=== PATIENT | female | born 1960 | race Caucasian/White ===

== ENCOUNTER 2019-06-21 09:47 | Observation (INO) | payer MEDICARE ==
[2019-06-21 10:18] LABS: Appearance,Urine Cloudy (Clear); Bacteria,Urine Many /hpf; Bilirubin,Urine Negative (Negative); Blood,Urine Trace (Negative); Color,Urine Light Yellow; Glucose,Urine (UA) Negative (Negative); Ketones,Urine 1+ (Negative); Leukocyte Esterase,Urine Negative (Negative); Nitrite,Urine Negative (Negative); PH, Urine 5.5 (5.0-8.0); Protein,Urine Negative (Negative); RBC,Urine 1 /hpf (0-5); Specific Gravity,Urine 1.004 (1.001-1.035); Squamous Epithelial Cell,Urine 9 /hpf (0-4); Urobilinogen,Urine <2.0 mg/dL (<2.0)
[2019-06-21] MEDS ORDERED: KETOROLAC 30 MG/ML 1 ML VIAL IVP STA (10:26)
[2019-06-21] MEDS ORDERED: SODIUM CHLORIDE 0.9% 1,000 ML IV STA (10:26)
[2019-06-21] MEDS ORDERED: ONDANSETRON 4 MG/2 ML VIAL IVP STA (10:26)
--- NOTE | 2019-06-21 10:43 | ED ---
Female Urogenital HPI <Gutierrez Stephenson - Last Filed: 06/21/19 16:11> - General Source: patient Mode of arrival: ambulatory Limitations: no limitations <Viridiana Yoo - Last Filed: 06/21/19 17:07> - General Chief complaint: Urogenital Stated complaint: Female Time Seen by Provider: 06/21/19 09:55 - History of Present Illness Initial comments: Patient is a 59-year-old female presenting to the emergency Department with complaints of lower abdominal pain 4 days. Patient states she had a physical with her PCP on and was complaining of increasing frequency. Patient states they did a UA and there is no signs of infection, but they started her on Cipro just in case. Patient states her lower abdominal pain has been increasing over the last 4 days. She describes the pain as lots of pressure mixed with sharp pain, inability to urinate all the way. Patient admits to being on fentanyl for back pain for a number of years now. Patient also admits to some nausea. Patient denies fever, chills, diarrhea. Patient's last bowel movement was this morning and was normal. Patient has history of hysterectomy, foriegn body removal with lots of scar tissue. Patient states her pain medication is not touching this pain. (Viridiana Yoo) - Related Data Home Medications Medication Instructions Recorded Confirmed ALPRAZolam [Xanax] 1 mg PO HS PRN 06/21/19 06/21/19 Levothyroxine Sodium [Synthroid] 125 mcg PO DAILY 06/21/19 06/21/19 Polyethylene Glycol 3350 [Miralax] 17 gm PO HS 06/21/19 06/21/19 fentaNYL 25MCG/HR PATCH [Duragesic 1 patch TRANSDERM Q72H 06/21/19 06/21/19 25MCG/HR] Allergies Allergy/AdvReac Type Severity Reaction Status Date / Time Sulfa (Sulfonamide Allergy Rash/Hives Verified 06/21/19 10:17 Antibiotics) codeine AdvReac MIGRAINE Verified 06/21/19 10:17 Review of Systems ROS Other: All systems not noted in ROS Statement are negative. <Gutierrez Stephenson - Last Filed: 06/21/19 16:11> ROS Other: All systems not noted in ROS Statement are negative. <Viridiana Yoo - Last Filed: 06/21/19 17:07> ROS Statement: Those systems with pertinent positive or pertinent negative responses have been documented in the HPI. Past Medical History Past Medical History: Thyroid Disorder History of Any Multi-Drug Resistant Organisms: None Reported Past Surgical History: Back Surgery, Hysterectomy Past Psychological History: Anxiety Smoking Status: Never smoker Past Alcohol Use History: Occasional Past Drug Use History: None Reported <Viridiana Yoo - Last Filed: 06/21/19 17:07> General Exam Limitations: no limitations <Viridiana Yoo - Last Filed: 06/21/19 17:07> - General Exam Comments Initial Comments: GENERAL: Well-appearing, well-nourished and in no acute distress, appears to be uncomfortable. HEAD: Atraumatic, normocephalic. EYES: Pupils equal round and reactive to light, extraocular movements intact, sclera anicteric, conjunctiva are normal. ENT: TMs normal, nares patent, oropharynx clear without exudates. Moist mucous membranes. NECK: Normal range of motion, supple without lymphadenopathy or JVD. LUNGS: Breath sounds clear to auscultation bilaterally and equal. No wheezes rales or rhonchi. HEART: Regular rate and rhythm without murmurs, rubs or gallops. ABDOMEN: Very tender to palpation the entire lower abdominal region, suprapubic. Soft, normoactive bowel sounds. No guarding, no rebound. No masses appreciated. : Deferred EXTREMITIES: Normal range of motion, no pitting or edema. No clubbing or cyanosis. NEUROLOGICAL: Cranial nerves II through XII grossly intact. Normal speech, normal gait. PSYCH: Normal mood, normal affect. SKIN: Warm, Dry, normal turgor, no rashes or lesions noted. (Viridiana Yoo) Course Vital Signs 06/21/19 06/21/19 09:49 15:27 Temperature 97.5 F L Pulse Rate 94 78 Respiratory 18 19 Rate Blood Pressure 133/93 115/75 O2 Sat by Pulse 98 98 Oximetry Medical Decision Making - Lab Data Result diagrams: 06/21/19 10:48 06/21/19 10:48 <Gutierrez Stephenson - Last Filed: 06/21/19 16:11> - Lab Data Result diagrams: 06/21/19 10:48 06/21/19 10:48 <Viridiana Yoo - Last Filed: 06/21/19 17:07> - Medical Decision Making Patient reevaluated by myself, Dr. Stephenson. Patient updated on results. Case was discussed with Dr. Duke, who will admit For hospital call. Case also discussed with Kalie, practitioner working with Dr. Servin. They will consult. They do not recommend starting steroids at this time. Urine will need to be cultured. Patient states back pain is chronic and unchanged. No focal weakness on exam. No tenderness to the lumbar spine. Patient does have mild tenderness in the suprapubic region. (Gutierrez Stephenson) Patient is a 59-year-old female with complaints of lower abdominal pain 4 days. Patient has been taking Cipro for possible UTI. Upon arrival, vital signs are stable, afebrile. On exam patient has severe tenderness of the lower abdominal region, suprapubic. Bladder scan was performed and revealed over 600 mL of f luid. Straight cath was performed and patient had instant relief. Patient's CBC, CMP are within normal limits. UA shows 1+ ketones and a trace of blood. CT the abdomen shows postsurgical changes and lumbar spine. No other acute findings. Case is discussed with Dr. Stephenson. Patient will be admitted observation with orthopedic consult. Urine will be cultured. Patient is in agreement with this plan. (Viridiana Yoo) - Lab Data Lab Results 06/21/19 06/21/19 06/21/19 Range/Units 10:00 10:48 10:48 WBC 10.0 (3.8-10.6) k/uL RBC 4.76 (3.80-5.40) m/uL Hgb 14.2 (11.4-16.0) gm/dL Hct 42.7 (34.0-46.0) % MCV 89.7 (80.0-100.0) fL MCH 29.9 (25.0-35.0) pg MCHC 33.3 (31.0-37.0) g/dL RDW 14.9 (11.5-15.5) % Plt Count 243 (150-450) k/uL Neutrophils % 79 % Lymphocytes % 14 % Monocytes % 5 % Eosinophils % 1 % Basophils % 0 % Neutrophils # 7.9 H (1.3-7.7) k/uL Lymphocytes # 1.4 (1.0-4.8) k/uL Monocytes # 0.5 (0-1.0) k/uL Eosinophils # 0.1 (0-0.7) k/uL Basophils # 0.0 (0-0.2) k/uL Sodium 139 (137-145) mmol/L Potassium 4.6 (3.5-5.1) mmol/L Chloride 102 (98-107) mmol/L Carbon Dioxide 27 (22-30) mmol/L Anion Gap 10 mmol/L BUN 12 (7-17) mg/dL Creatinine 0.74 (0.52-1.04) mg/dL Est GFR (CKD-EPI)AfAm >90 (>60 ml/min/1.73 sqM) Est GFR (CKD-EPI)NonAf >90 (>60 ml/min/1.73 sqM) Glucose 105 H (74-99) mg/dL Calcium 9.0 (8.4-10.2) mg/dL Total Bilirubin 0.5 (0.2-1.3) mg/dL AST 31 (14-36) U/L ALT 25 (9-52) U/L Alkaline Phosphatase 62 (38-126) U/L Total Protein 6.8 (6.3-8.2) g/dL Albumin 3.8 (3.5-5.0) g/dL Urine Color Light Yellow Urine Appearance Cloudy H (Clear) Urine pH 5.5 (5.0-8.0) Ur Specific [place] 1.004 (1.001-1.035) Urine Protein Negative (Negative) Urine Glucose (UA) Negative (Negative) Urine Ketones 1+ H (Negative) Urine Blood Trace H (Negative) Urine Nitrite Negative (Negative) Urine Bilirubin Negative (Negative) Urine Urobilinogen <2.0 (<2.0) mg/dL Ur Leukocyte Esterase Negative (Negative) Urine RBC 1 (0-5) /hpf Urine WBC 3 (0-5) /hpf Ur Squamous Epith Cells 9 H (0-4) /hpf Urine Bacteria Many H (None) /hpf Disposition <Gutierrez Stephenson - Last Filed: 06/21/19 16:11> Is patient prescribed a controlled substance at d/c from ED?: No Decision Date: 06/21/19 Decision Time: 16:18 <Viridiana Yoo - Last Filed: 06/21/19 17:07> Clinical Impression: Urinary retention, Urinary tract infection Disposition: ADMITTED IP TO THIS HOSP Condition: Stable
[2019-06-21 11:15] LABS: Basophils % (A) 0 %; Eosinophils # (A) 0.1 k/uL (0-0.7); Eosinophils % (A) 1 %; HCT 42.7 % (34.0-46.0); HGB 14.2 gm/dL (11.4-16.0); Lymphocytes # (A) 1.4 k/uL (1.0-4.8); Lymphocytes % (A) 14 %; MCH 29.9 pg (25.0-35.0); MCHC 33.3 g/dL (31.0-37.0); MCV 89.7 fL (80.0-100.0); Mean Platelet Volume 7.6; Monocytes # (A) 0.5 k/uL (0-1.0); Monocytes % (A) 5 %; Neutrophils # (A) 7.9 k/uL (1.3-7.7); Neutrophils % (A) 79 %; Platelet Count 243 k/uL (150-450); RBC 4.76 m/uL (3.80-5.40); RDW 14.9 % (11.5-15.5)
[2019-06-21 11:17] LABS: ALT 25 U/L (9-52); AST 31 U/L (14-36); African American GFR (CKD) >90 (>60 ml/min/1.73 sqM); Albumin 3.8 g/dL (3.5-5.0); Alkaline Phosphatase 62 U/L (38-126); Anion Gap 10 mmol/L; Blood Urea Nitrogen 12 mg/dL (7-17); Carbon Dioxide 27 mmol/L (22-30); Chloride 102 mmol/L (98-107); Glucose 105 mg/dL (74-99); Potassium 4.6 mmol/L (3.5-5.1); Sodium 139 mmol/L (137-145); Total Bilirubin 0.5 mg/dL (0.2-1.3); Total Protein 6.8 g/dL (6.3-8.2)
--- NOTE | 2019-06-21 11:41 | XR ---
EXAMINATION TYPE: XR KUB DATE OF EXAM: 06/21/2019 COMPARISON: NONE HISTORY: Pain TECHNIQUE: Single supine KUB image of the abdomen is obtained FINDINGS: Small bowel demonstrates no evidence for dilatation or air fluid levels. Gas and fecal material is seen in non-distended colon. No convincing evidence for pneumoperitoneum. No unusual calcifications. The lung bases are clear. Postoperative changes lumbar spine. IMPRESSION: 1. Overall nonobstructive bowel gas pattern.
--- NOTE | 2019-06-21 13:44 | CT ---
EXAMINATION TYPE: CT abdomen pelvis w con DATE OF EXAM: 06/21/2019 COMPARISON: Difficulty with urinating HISTORY: Patient complains of difficulty urinating. CT DLP: 832.6 mGycm Automated exposure control for dose reduction was used. CONTRAST: CT scan of the abdomen pelvis is performed with IV Contrast, patient injected with 100 mL of Isovue 3 00. FINDINGS- LUNG BASES- No significant abnormality is appreciated. LIVER/GB-postcholecystectomy changes noted. Intrahepatic biliary ductal dilation likely is related to postcholecystectomy changes. There are multiple hypodensities within the liver the largest seen with in the left lobe on axial image 35 measuring 12 Hounsfield units suggestive of simple cyst. PANCREAS- No gross abnormality is seen. SPLEEN- No gross abnormality is seen. ADRENALS- No gross abnormality is seen. KIDNEYS/BLADDER- no hydronephrosis nephrolithiasis or renal mass. BOWEL- no bowel dilatation. Normal appendix. LYMPH NODES- No greater than 1cm abdominal or pelvic lymph nodes areappreciated. OSSEOUS STRUCTURES-postsurgical change suggestive L4-L5 laminectomy identified. Alignment anatomic. N o compression deformities. Abnormal soft tissue posterior to L4 and L5 likely related to post laminec bess scars. Disc bulging L3-L4 with facet arthropathy and ligamentum flavum likely results in canal s tenosis.. OTHER- aorta of normal caliber. Mild atherosclerotic changes. No free fluid. No free air. IMPRESSION- 1. Postcholecystectomy changes with findings suggestive of mild intrahepatic biliary ductal dilation. 2. Postsurgical change lower lumbar spine. Disc bulging and hypertrophic changes L3-L4 likely results in canal stenosis correlate with MRI as clinically warranted.
[2019-06-21] MEDS ORDERED: ONDANSETRON 4 MG/2 ML VIAL IVP PRN (16:15)
[2019-06-21] MEDS ORDERED: NALOXONE 0.4 MG/ML 1 ML VIAL IV PRN (16:15)
[2019-06-21] MEDS ORDERED: SODIUM CHLORIDE 0.9% 1,000 ML IV SCH (16:15)
[2019-06-21] MEDS ORDERED: ACETAMINOPHEN TAB 325 MG TAB PO PRN (16:15)
[2019-06-21 17:55] VITALS: BMI 29.6
[2019-06-21] MEDS ORDERED: ALPRAZolam 1 MG TAB PO PRN (18:51)
[2019-06-21] MEDS ORDERED: HYDROmorphone 1 MG/ML 1 ML SYRINGE IVP PRN (19:27)
--- NOTE | 2019-06-21 19:29 | P.HPIM ---
History of Present Illness H&P Date: 06/21/19 Chief Complaint: Urinary retention 51-year-old female with PMH of chronic lower back pain post laminectomy in 2012 presents to the ED for abdominal pain and urinary retention. Patient noted lower abdominal pain that was pressure-like in nature that started on Friday. Patient reports that the pain gets worse with movement, sitting up and with movement of her abdomen. Patient also reports difficulty urinating, difficulty in initiating a stream and dribbling of urine. Patient reports the pain to be 5 out of 10 in severity. Patient went to go see her PCP and a urinalysis was performed, negative for UTI. When her pain persisted, this prompted the patient to come to the ED. Patient denies any headache, lower melany edema, nausea or vomiting, fever or chills, cough, chest pain, shortness of breath, changes in bowel habits. No changes in appetite or weight. Patient denies any dizziness, numbness/weakness/tingling of the extremities. Patient denies any bladder or bowel incontinence. She denies any saddle anesthesia. Patient denies any lower extremity weakness, numbness/weakness/tingling of the lower extremities. In the ED, vital signs were stable. CBC and CMP was unremarkable. UA was negative for leukocyte esterase or nitrites. CT abdomen and pelvis shows post cholecystectomy changes, postsurgical lower lumbar spine, disc bulging of L3-L4 and likely results in canal stenosis. Patient is admitted for orthopedic evaluation. Review of Systems Pertinent positives and negatives as discussed in HPI, a complete review of systems was performed and all other systems are negative. Past Medical History Past Medical History: Thyroid Disorder History of Any Multi-Drug Resistant Organisms: None Reported Past Surgical History: Back Surgery, Hysterectomy Past Psychological History: Anxiety Smoking Status: Never smoker Past Alcohol Use History: Occasional Past Drug Use History: None Reported - Past Family History Mother Family Medical History: Cancer, COPD Father Family Medical History: Cancer Medications and Allergies Home Medications Medication Instructions Recorded Confirmed Type ALPRAZolam [Xanax] 1 mg PO HS PRN 06/21/19 06/21/19 History Ciprofloxacin HCl [Cipro] 250 mg PO BID 06/21/19 06/21/19 History Levothyroxine Sodium [Synthroid] 125 mcg PO DAILY 06/21/19 06/21/19 History Polyethylene Glycol 3350 [Miralax] 17 gm PO HS 06/21/19 06/21/19 History fentaNYL 25MCG/HR PATCH [Duragesic 1 patch TRANSDERM Q72H 06/21/19 06/21/19 History 25MCG/HR] Allergies Allergy/AdvReac Type Severity Reaction Status Date / Time Sulfa (Sulfonamide Allergy Rash/Hives Verified 06/21/19 17:24 Antibiotics) codeine AdvReac MIGRAINE Verified 06/21/19 17:24 Physical Exam Vitals: Vital Signs Temp Pulse Pulse Resp BP BP Pulse Ox 06/21/19 17:29 98 F 68 18 130/80 95 06/21/19 15:27 78 19 115/75 98 06/21/19 09:49 97.5 F L 94 18 133/93 98 Intake and Output 06/21/19 06/21/19 06/21/19 06:59 14:59 22:59 Output Total 600 450 Balance -600 -450 Output: Urine 600 450 Straight 600 450 Other: Voiding Method Indwelling Catheter Weight 74.843 kg 75.8 kg General: [non toxic], [no distress], [appears at stated age] Derm: [warm], [dry] Head: [atraumatic], [normocephalic], [symmetric] Eyes: [EOMI], [no lid lag], [anicteric sclera] Mouth: [no lip lesion], [mucus membranes moist] Cardiovascular: [S1S2 reg], [no murmur], [positive DP pulse bilateral], Lungs: [CTA bilateral], [no rhonchi, no rales] , [no accessory muscle use] Abdominal: [soft], [tenderness to palpation in the left lower quadrant without rebound], [no guarding], [no appreciable organomegaly] Ext: [no gross muscle atrophy], [no edema], [no contractures] Neuro: [ CN II-XI grossly intact], [no focal neuro deficits] Psych: [Alert], [oriented], [appropriate affect] Results CBC & Chem 7: 06/21/19 10:48 06/21/19 10:48 Labs: Abnormal Lab Results - Last 24 Hours (Table) 06/21/19 06/21/19 06/21/19 Range/Units 10:00 10:48 10:48 Neutrophils # 7.9 H (1.3-7.7) k/uL Glucose 105 H (74-99) mg/dL Urine Appearance Cloudy H (Clear) Urine Ketones 1+ H (Negative) Urine Blood Trace H (Negative) Ur Squamous Epith Cells 9 H (0-4) /hpf Urine Bacteria Many H (None) /hpf Thrombosis Risk Factor Assmnt - Choose All That Apply Any of the Below Risk Factors Present?: Yes Each Factor Represents 1 point: Age 41-60 years, Hx of IBD, Obesity (BMI >25) Other Risk Factors: No Other congenital or acquired thrombophilia - If yes, enter type in comment: No Thrombosis Risk Factor Assessment Total Risk Factor Score: 3 Thrombosis Risk Factor Assessment Level: Moderate Risk Assessment and Plan Assessment: Assessment and Plan Urinary retention, concerns for cord compression Chronic lower back pain post laminectomy in 2013 Hypothyroidism Per ED, 600 mL with Carson catheter. CT abdomen and pelvis showed no hydronephrosis or nephrolithiasis. CT pelvis shows disc bulging and L3-L4 resulting in canal stenosis. Plans: Continue Carson catheter. Plans to remove tomorrow. Follow orthopedic consultation for concerns of cord compression (unlikely). Follow urine culture. Plans: Adequate pain management. Plans: Continue Synthroid. Patient admitted for urinary retention, rule out concerns for cord compression. Orthopedic surgery consulted. DVT prophylaxis: SCD boots Discussed with: [Patient] Anticipated discharge: [1-2 days] Anticipated discharge place: [Home] A total of [30] minutes was spent on the care of this complex patient more than 50% of the time was spent in counseling and care coordination. Patient is her decision maker in the case that she can't make decisions for resolved. Patient reiterates full code.
[2019-06-21] MEDS ORDERED: POLYETHYLENE GLYCOL 3350 17 GM POWD.PACK PO SCH (21:00)
[2019-06-21] MEDS: traMADol 50 MG TAB PO PRN (22:25)
[2019-06-22 00:51] VITALS: RESP 16
[2019-06-22] MEDS ORDERED: LEVOTHYROXINE 125 MCG TAB PO SCH (06:30)
[2019-06-22] MEDS ORDERED: TAMSULOSIN 0.4 MG CAP.ER.24H PO STA (10:01)
[2019-06-22] MEDS ORDERED: CIPROFLOXACIN HCL 250 MG TAB PO SCH (10:15)
--- NOTE | 2019-06-22 12:02 | P.CNOR ---
History of Present Illness - [facility] Consult date: 06/22/19 Requesting physician: Gutierrez Stephenson Consult reason: low back pain (Chronic low back pain), other (Urinary retention) History of present illness: Patient is a very pleasant 59-year-old female who is seen and examined at bedside for further evaluation in regards to chronic low back pain and urinary retention. Patient presented to the emergency department yesterday, 06/21/2019, with complaints of suprapubic pain and urinary retention. She does have a history of chronic low back pain but did not present to the emergency department in this regard. Nursing states she was being treated for urinary tract infection in the outpatient setting with Cipro. Urinalysis in the emergency department did show some abnormal findings. Patient had a Carson catheter placed yesterday. She states her suprapubic pain has improved after placement of the catheter. Catheter has been discontinued this morning at 6:30 AM. We will wait to see if the patient can void over the next 6 hours on her own. Consultation has been placed with urology. She denies any acute changes in regards to her lumbosacral spine. She states she has undergone 4 separate surgical interventions at her lumbar spine with a last one performed in 2012. She does not wish to have any further surgical intervention at her lumbar spine. She does not feel her symptoms are stemming from her lumbar spine. She has chronic low back pain and has been experiencing some tailbone pain and right hip pain. She denies any injuries. She states if her symptoms were only back pain she would've not presented to the emergency department for further evaluation. She denies any specific lower extremity weakness bilaterally. She's not currently complaining of significant radiculopathy. She is known to have chronic low back pain that is generally controlled in the outpatient setting. Past Medical History Past Medical History: Thyroid Disorder History of Any Multi-Drug Resistant Organisms: None Reported Past Surgical History: Back Surgery, Hysterectomy Past Psychological History: Anxiety Smoking Status: Never smoker Past Alcohol Use History: Occasional Past Drug Use History: None Reported - Past Family History Mother Family Medical History: Cancer, COPD Father Family Medical History: Cancer Medications and Allergies Home Medications Medication Instructions Recorded Confirmed Type ALPRAZolam [Xanax] 1 mg PO HS PRN 06/21/19 06/21/19 History Ciprofloxacin HCl [Cipro] 250 mg PO BID 06/21/19 06/21/19 History Levothyroxine Sodium [Synthroid] 125 mcg PO DAILY 06/21/19 06/21/19 History Polyethylene Glycol 3350 [Miralax] 17 gm PO HS 06/21/19 06/21/19 History fentaNYL 25MCG/HR PATCH [Duragesic 1 patch TRANSDERM Q72H 06/21/19 06/21/19 History 25MCG/HR] Allergies Allergy/AdvReac Type Severity Reaction Status Date / Time Sulfa (Sulfonamide Allergy Rash/Hives Verified 06/21/19 17:24 Antibiotics) codeine AdvReac MIGRAINE Verified 06/21/19 17:24 Physical Examination Physical exam: Patient is awake, alert, and oriented 3 Vital signs stable Good chest excursion with deep inspiration and expiration Abdomen somehwat distended with mild discomfort with palpation Examination of lumbar spine reveals skin is intact with no abrasions, lacerations, or bruises; no erythema, purulence or signs of infection Evidence of a well-healed incision along the midline of the lumbar spine Dorsiflexion, plantarflexion, and extensor hallucis longus positive sustained bilaterally Lower extremity strength 5/5 bilaterally Patellar reflex 1+ bilaterally No lower extremity hyperreflexia bilaterally Straight leg test negative bilateral lower extremities Negative Lasegue's test bilaterally No signs or symptoms of DVT; no calf pain No pain with internal and external rotation of the hips bilaterally Neurovascularly intact Results Pertinent studies: CT of the abdomen and pelvis with contrast taken on 06/21/2019: L3-4 disc bulging and facet hypertrophy likely resulting in spinal canal stenosis; L4-5 evidence of fusion with transforaminal lumbar interbody fusion; L5-S1 degenerative disc disease; ostcholecystectomy changes suggestive of mild intrahepatic biliary ductal dilation - Labs Labs: Abnormal Lab Results - Last 24 Hours (Table) 06/21/19 06/21/19 06/21/19 Range/Units 10:00 10:48 10:48 Neutrophils # 7.9 H (1.3-7.7) k/uL Glucose 105 H (74-99) mg/dL Urine Appearance Cloudy H (Clear) Urine Ketones 1+ H (Negative) Urine Blood Trace H (Negative) Ur Squamous Epith Cells 9 H (0-4) /hpf Urine Bacteria Many H (None) /hpf Microbiology - Last 24 Hours (Table) 06/21/19 10:00 Urine Culture - Preliminary Urine,Voided H & H 06/21/19 Range/Units 10:48 Hgb 14.2 (11.4-16.0) gm/dL Hct 42.7 (34.0-46.0) % Result Diagrams: 06/21/19 10:48 06/21/19 10:48 Assessment and Plan Assessment: Assessment: Chronic low back pain Urinary retention Suprapubic pain History of fusion L4-5 History of lumbar spine surgery 4 L3-4 disc bulging and facet hypertrophy with likely stenosis L5-S1 degenerative disc disease Urinary tract infection being treated in the outpatient setting (1) Chronic low back pain Current Visit: Yes Status: Acute Code(s): M54.5 - LOW BACK PAIN; G89.29 - OTHER CHRONIC PAIN SNOMED Code(s): 758514819 (2) History of lumbar fusion Current Visit: Yes Status: Acute Code(s): Z98.1 - ARTHRODESIS STATUS SNOMED Code(s): 93949773884974 (3) Lumbar facet arthropathy Current Visit: Yes Status: Acute Code(s): M47.816 - SPONDYLOSIS W/O MYELOPATHY OR RADICULOPATHY, LUMBAR REGION SNOMED Code(s): 732611378 (4) Lumbar disc disorder Current Visit: Yes Status: Acute Code(s): M51.9 - UNSP THORACIC, THORACOLUM AND LUMBOSACR INTVRT DISC DISORDER SNOMED Code(s): 947425758 (5) Disc disease, degenerative, lumbar or lumbosacral Current Visit: Yes Status: Acute Code(s): M51.37 - OTHER INTERVERTEBRAL DISC DEGENERATION, LUMBOSACRAL REGION SNOMED Code(s): 84161416 (6) Suprapubic pain, acute Current Visit: Yes Status: Acute Code(s): R10.2 - PELVIC AND PERINEAL PAIN SNOMED Code(s): 113408166 (7) Urinary retention Current Visit: Yes Status: Acute Code(s): R33.9 - RETENTION OF URINE, UNSPECIFIED SNOMED Code(s): 594918337 (8) Urinary tract infection Current Visit: Yes Status: Acute Code(s): N39.0 - URINARY TRACT INFECTION, SITE NOT SPECIFIED SNOMED Code(s): 70159577 Plan: Plan: 1. After reviewing the imaging, physical examination the patient, and further discussion with the patient, we will currently plan to continue with conservative treatment. We are currently planning for any further surgical intervention her lumbar spine. Patient does not wish to have any surgical intervention her lumbar spine proceeding forward. Patient is known have chronic low back pain and is not currently experiencing any significant changes in regards to her back pain. Her most significant symptom is urinary retention suprapubic pain. She is currently waiting for consultation with urology. She does not feel her symptoms are stemming specifically from her spine. A Carson catheter was inserted yesterday has been discontinued this morning. They are currently waiting over the next 6 hours to see the patient is able to void on her own. If the patient is unable to void on her own we may plan to obtain an MRI of the lumbar spine with and without contrast to rule out a spinal cause for her symptoms. If the patient is able to void on her own we will not plan to obtain the MRI and we'll plan to sign off on the patient allowing her to follow- up in the outpatient setting on an as-needed basis. In the outpatient setting she may continue to follow with other medical providers that she has been following previously for treatment for her ongoing chronic low back pain. 2. Patient will continue be seen examined by medicine and is waiting for consultation with urology Time with Patient: Greater than 30 (Including obtaining history, physical examination, reviewing of imaging, and dictation.)
[2019-06-22] MEDS: traMADol 50 MG TAB PO PRN (12:40)
[2019-06-22 12:50] VITALS: BP 108/67; PULSE 65; TEMP 98.2
--- NOTE | 2019-06-22 15:07 | P.GSCN ---
History of Present Illness Consult date: 06/22/19 History of present illness: The patient is a pleasant 59-year-old female who was admitted to the hospital with abdominal pain and urinary distention in urine retention. The patient has a long history of lower back issues. She has had 4 previous laminectomies the latest in 2012. She has chronic pain management. She sees a physiatry a stone regular basis. She has been having some increasing back problem as of late. He was to get a steroid Dosepak but the urine and abdominal problems began. She ended up in the emergency room in urine retention and we are asked see the patient. She denies new neuropathy. She denies pelvic symptoms other than pelvic pain. She does have the abdominal pain. She is voiding better today. A residual this afternoon is 200 mL. There is no history of female problems other than a hysterectomy for benign disease. There is no history of prolapse. There is no history of incontinence recurrent infections or hematuria. There is no history constipation. Review of Systems All systems: negative - Constitutional Denies fever, Denies weight loss - EENT Eyes: denies blurred vision Ears, nose, mouth and throat: Denies dysphagia - Cardiovascular Denies chest pain, Denies shortness of breath - Respiratory Denies cough, Denies 7 - Gastrointestinal Reports as per HPI - Genitourinary Genitourinary: Denies dysuria, Denies hematuria - Integumentary Denies rash, Denies unusual bruising - Neurological Denies headaches, Denies syncope - Hematologic/Lymphatic Denies easy bleeding, Denies easy bruising Past Medical History Past Medical History: Thyroid Disorder History of Any Multi-Drug Resistant Organisms: None Reported Past Surgical History: Back Surgery, Hysterectomy Past Psychological History: Anxiety Smoking Status: Never smoker Past Alcohol Use History: Occasional Past Drug Use History: None Reported - Past Family History Mother Family Medical History: Cancer, COPD Father Family Medical History: Cancer Medications and Allergies Home Medications Medication Instructions Recorded Confirmed Type ALPRAZolam [Xanax] 1 mg PO HS PRN 06/21/19 06/21/19 History Ciprofloxacin HCl [Cipro] 250 mg PO BID 06/21/19 06/21/19 History Levothyroxine Sodium [Synthroid] 125 mcg PO DAILY 06/21/19 06/21/19 History Polyethylene Glycol 3350 [Miralax] 17 gm PO HS 06/21/19 06/21/19 History fentaNYL 25MCG/HR PATCH [Duragesic 1 patch TRANSDERM Q72H 06/21/19 06/21/19 History 25MCG/HR] Allergies Allergy/AdvReac Type Severity Reaction Status Date / Time Sulfa (Sulfonamide Allergy Rash/Hives Verified 06/21/19 17:24 Antibiotics) codeine AdvReac MIGRAINE Verified 06/21/19 17:24 Surgical - Exam Vital Signs Temp Pulse Resp BP Pulse Ox 97.5 F L 94 18 133/93 98 06/21/19 09:49 06/21/19 09:49 06/21/19 09:49 06/21/19 09:49 06/21/19 09:49 - General well developed, well nourished, no distress - Eyes PERRL - ENT no hearing loss - Neck trachea midline - Respiratory normal expansion, normal respiratory effort - Cardiovascular Rhythm: regular - Abdomen Abdomen: soft, non tender - Genitourinary No vaginal prolapse. No pelvic masses. normal external genitalia, normal perineum - Integumentary no rash, no growths - Neurologic normal coordination, normal sensation - Musculoskeletal normal posture - Psychiatric oriented to time, oriented to person, oriented to place, speech is normal, memory intact Results - Labs 06/21/19 10:48 06/21/19 10:48 Microbiology - Last 24 Hours (Table) 06/21/19 10:00 Urine Culture - Preliminary Urine,Voided - Imaging CT scan - abdomen: report reviewed, image reviewed CT scan - pelvis: report reviewed, image reviewed Assessment and Plan Assessment: Impression: This patient has urine retention which is most likely neurologically mediated given her protracted and recurrent back problems. She does have some disc disease on the recent computed tomography scan. There is no obvious pelvic disease. Her bimanual examination is unremarkable. Whether there is spasm due to the pain oral nerve hypoesthesia is indeterminate. She seems to be voiding better. Recommendations: My recommendation is to teach her how to self cath and this can be used when necessary if she is unable to urinate. I'll make an appointment to see her in the office in one week. She will go on Flomax. There is nothing hilario gical from a urologic standpoint however that can be done.
--- NOTE | 2019-06-22 16:21 | P.DS ---
Providers Date of admission: 06/21/19 16:10 Expected date of discharge: 06/22/19 Attending physician: Esther Damon MD Consults: 06/21/19 16:11 Consult Physician Urgent Consulting Provider: Debby Servin Consult Reason/Comments: Urinary retention, back pain Do you want consulting provider notified?: Already Contacted 06/22/19 07:21 Consult Physician Routine Consulting Provider: Nick Truong Consult Reason/Comments: urinary retention Do you want consulting provider notified?: Yes Primary care physician: Physician Nonstaff Hospital Course: Discharge Diagnosis: Acute urinary retention Chronic low back pain secondary to lumbar disc disease, L3/4 disc bulging was thought hypertrophy and likely stenosis, L5-S1 degenerative disc disease UTI, POA Hypothyroidism Chronic opiate use Hospital Course: Patient is a 59-year-old female past medical history of chronic low back pain status post laminectomy in 2012 and hypothyroidism who presented to the emergency department for abdominal pain and difficulty with urination. On arrival to the ER her vital signs were within normal limits. Initial laboratory analysis was unremarkable. Urinalysis showed white blood cell count of 3. She had a Carson catheter placed with return of over [address] abdomen and pelvis showed postcholecystectomy changes as well as postsurgical changes to the lumbar spine with disc bulging and hypertrophic changes at L3/4 likely resulting in canal stenosis. She was admitted for further monitoring. Her catheter was removed on the morning of 06/22 and she again had urinary retention of approximately 250 mL her post void residual. She is seen by orthopedic spine surgery who felt that her symptoms were likely not due to spinal cord and patient did not want surgical intervention. She was seen by urology who felt that this likely was needed. They recommended straight cath as needed with training. They also recommended continuing Flomax. She was cleared by orthospine and urology for discharge. She will follow-up with urology in [address] Servin in 1-2 weeks. She was given instructions to return to the emergency department if she experiences any change in bowel or bladder function or acute lower extremity weakness or paresthesias. Urine culture was pending at time of discharge. Patient seen and examined at bedside. Having some fullness after bleeding continues to have 265 mL. Will start Flomax and patient is in agreement. She denies any changes in her back pain such as worsening. She denies any new lower extremity weakness or paresthesias. Vital signs reviewed and stable. General: non toxic, no distress, appears at stated age Derm: warm, dry Head: atraumatic, normocephalic, symmetric Eyes: EOMI, no lid lag, anicteric sclera Mouth: no lip lesion, mucus membranes moist Cardiovascular: S1S2 reg, no murmur, positive posterior tibial pulse bilateral, Lungs: CTA bilateral, no rhonchi, no rales , no accessory muscle use Abdominal: soft, nontender to palpation, no guarding, no appreciable organomegaly Ext: no gross muscle atrophy, no edema, no contractures Neuro: CN II-XI grossly intact, no focal neuro deficits Psych: Alert, oriented, appropriate affect Genitourinary: No signs of bladder or vaginal prolapse A total of 25 minutes of time were spent preparing this complex discharge summary . Pertinent Studies: CT abdomen and pelvis showed postcholecystectomy changes as well as postsurgical changes to the lumbar spine with disc bulging and hypertrophic changes at L3/4 likely resulting in canal stenosis. Patient Condition at Discharge: Stable Plan - Discharge Summary Discharge Rx Participant: No New Discharge Prescriptions: New Tamsulosin [Flomax] 0.4 mg PO HS #30 cap Continue fentaNYL 25MCG/HR PATCH [Duragesic 25MCG/HR] 1 patch TRANSDERM Q72H Levothyroxine Sodium [Synthroid] 125 mcg PO DAILY ALPRAZolam [Xanax] 1 mg PO HS PRN PRN Reason: Anxiety Polyethylene Glycol 3350 [Miralax] 17 gm PO HS Ciprofloxacin HCl [Cipro] 250 mg PO BID Discharge Medication List ALPRAZolam [Xanax] 1 mg PO HS PRN 06/21/19 [History] Ciprofloxacin HCl [Cipro] 250 mg PO BID 06/21/19 [History] Levothyroxine Sodium [Synthroid] 125 mcg PO DAILY 06/21/19 [History] Polyethylene Glycol 3350 [Miralax] 17 gm PO HS 06/21/19 [History] fentaNYL 25MCG/HR PATCH [Duragesic 25MCG/HR] 1 patch TRANSDERM Q72H 06/21/19 [History] Tamsulosin [Flomax] 0.4 mg PO HS #30 cap 06/22/19 [Rx] Follow up Appointment(s)/Referral(s): Oliverio Paz PAC [PHYSICIAN LAUNDRY HOUSEKEEPER] - 1 Week (Patient may follow-up with Oliverio Paz PA-C or Dr. Alex Servin at [facility] in 1-2 weeks following discharge. ) Nonstaff,Physician [Primary Care Provider] - 1-2 days Nick Truong MD [STAFF PHYSICIAN] - 1 Week Activity/Diet/Wound Care/Special Instructions: 1. If the patient begins to experience any changes in bowel or bladder function, is unable to urinate, begins to experience acute lower extremity weakness, or begins to experience other symptoms in regards to her lower extremities that are abnormal in regards to her baseline, she is encouraged to return back to [facility] for further evaluation. Pending Studies Pending Results: final urine culture
== END 2019-06-22 16:35 | disposition home or self-care (01) ==
LOC: EC 09:47 → 6PED 16:10
PROVIDERS: ADMIT Family Medicine; ATTEND Family Medicine
DX: R33.9 Retention of urine, unspecified (principal); N39.0 Urinary tract infection, site not specified; G89.29 Other chronic pain; M25.551 Pain in right hip; M51.26 Other intervertebral disc displacement, lumbar region; M51.37 Other intervertebral disc degeneration, lumbosacral region; M47.896 Other spondylosis, lumbar region; E03.9 Hypothyroidism, unspecified; F41.9 Anxiety disorder, unspecified; E66.9 Obesity, unspecified; Z68.29 Body mass index [BMI] 29.0-29.9, adult; Z79.891 Long term (current) use of opiate analgesic; Z79.890 Hormone replacement therapy; Z88.2 Allergy status to sulfonamides; Z88.5 Allergy status to narcotic agent; Z90.710 Acquired absence of both cervix and uterus; Z98.1 Arthrodesis status; Z87.19 Personal history of other diseases of the digestive system; Z90.49 Acquired absence of other specified parts of digestive tract; Z82.5 Family history of asthma and other chronic lower respiratory diseases; Z80.9 Family history of malignant neoplasm, unspecified
CPT/HCPCS: 51702 ×2; 96361; 96374; 96375; 99285; 51798; 36415; 80053; 85025; 81001; 87086; 74018; 74177; G0378 ×2; J2405; J1885; Q9967

== ENCOUNTER → 2019-08-24 | Outpatient (CLI) | payer MEDICARE ==
[2019-08-24 09:50] VITALS: BP 121/81; PULSE 85; RESP 18; TEMP 97.9; BMI 30.2
--- NOTE | 2019-08-24 11:20 | P.HPOB ---
History of Present Illness H&P Date: 08/24/19 Chief Complaint: The patient is here for her routine gynecologic exam and ma mmogram. This is a 59-year-old with an LMP of 1990 who is status post FILOMENA/BSO for benign reasons. The patient is here to establish with this office. She states it has been about 3 years since her last pelvic exam. She is without gynecologic complaints. She has used different forms of HRT since her hysterectomy and has been using estrogen and testosterone pellets for the past several years. She states this is help with menopausal symptoms and has helped with cognition per the patient. Review of Systems The patient has gained 10 pounds over the last year. She denies respiratory or cardiac problems. GI: She does have intermittent problems with irritable bowel symptoms and constipation. Past Medical History Past Medical History: Thyroid Disorder Additional Past Medical History / Comment(s): Chronic back problems. 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 History of Any Multi-Drug Resistant Organisms: None Reported Past Surgical History: Back Surgery, Hysterectomy Additional Past Surgical History / Comment(s): FILOMENA/BSO in 1990. 4 back surgeries. Yeison fundoplication. Colonoscopy 2019(2nd, next after 5yrs). Past Psychological History: Anxiety Smoking Status: Former smoker Past Alcohol Use History: Occasional (0-1 per week) Additional Past Alcohol Use History / Comment(s): Quit smoking in 2007. Past Drug Use History: None Reported Additional History: She has been since 1981 and is disabled. - Past Family History Mother Family Medical History: Cancer, COPD Additional Family Medical History / Comment(s): Gastric and uterine cancer. Father Family Medical History: Cancer Additional Family Medical History / Comment(s): Bladder cancer. Medications and Allergies Home Medications and Allergies Comment(s): Estrogen and testosterone pellets which are inserted every 4-5 months. This is prescribed and administered by a doctor out of town. Home Medications Medication Instructions Recorded Confirmed Type ALPRAZolam [Xanax] 1 mg PO HS PRN 06/21/19 08/24/19 History Polyethylene Glycol 3350 [Miralax] 17 gm PO HS 06/21/19 08/24/19 History fentaNYL 25MCG/HR PATCH [Duragesic 1 patch TRANSDERM Q72H 06/21/19 08/24/19 History 25MCG/HR] L.acidoph,Paracasei, B.lactis 1 each PO DAILY 08/24/19 08/24/19 History [Probiotic] Levothyroxine Sodium [Tirosint] 125 mcg PO DAILY 08/24/19 08/24/19 History Allergies Allergy/AdvReac Type Severity Reaction Status Date / Time Sulfa (Sulfonamide Allergy Rash/Hives Verified 06/21/19 17:24 Antibiotics) codeine AdvReac MIGRAINE Verified 06/21/19 17:24 Exam Vital Signs Temp Pulse Resp BP Pulse Ox 08/24/19 09:43 97.9 F 85 18 121/81 98 Height 5 feet 3 inches, weight 171 pounds, BMI 30. This is a well-developed well-nourished white female who is alert and oriented times 3 in no acute distress. HEENT: Within normal limits. NECK: Supple without mass or thyromegaly. CHEST AND LUNGS: Clear to auscultation. HEART: Regular rate and rhythm. BREASTS: Are without mass or discharge. AXILLARY EXAM: Negative for adenopathy. BACK: Negative for CVA tenderness. ABDOMEN: Soft, nontender, without palpable masses. PELVIC EXAM: External genitalia appears normal with minimal atrophy. Vagina appears normal minimal atrophy. There is no evidence of prolapse. Bimanual examination is negative for mass or tenderness. RECTAL EXAM: Rectovaginal exam is negative for mass or tenderness and is negative for occult blood. EXTREMITIES: Nontender. IMPRESSION: 1. 59-year-old surgically menopausal female status post FILOMENA/BSO for benign reasons with normal gynecologic exam. 2. The patient uses HRT in the form of estrogen and testosterone pellets that are administered subcutaneously for menopausal symptoms. PLAN: 1. Pap smears have been discontinued. 2. Self breast awareness was discussed with the patient. 3. Screening mammogram will be done today. 4. Osteoporosis prevention was discussed. I have stressed the importance of adequate calcium, vitamin D and regular exercise. Recommended amounts of calcium and vitamin D were also discussed. 5. We have had a long discussion regarding HRT including the possible increased risk for stroke and blood clots. I have recommended that she wean off of HRT. She will discuss this with the D.O. that prescribes this for her. 6. We have had a discussion regarding weight control. I have stressed the importance of good nutrition and regular exercise. I have also recommended that she try to get adequate amounts of fiber in her diet, eat regular meals and avoid medications or supplements to lose weight. 7. The patient was advised to return in 1-2 years for her well woman examination.
--- NOTE | 2019-08-25 11:18 | MM ---
Reason for exam: screening (asymptomatic). Last mammogram was performed 1 year and 6 months ago. History: Patient is postmenopausal. Took estrogen beginning at age 30. Physical Findings: A clinical breast exam by your physician is recommended on an annual basis and results should be correlated with mammographic findings. MG 3D Screening Mammo W/Cad Bilateral CC and MLO view(s) were taken. Prior study comparison: February 27, 2018, mammogram. December 30, 2016, mammogram. The breast tissue is heterogeneously dense. This may lower the sensitivity of mammography. There is no discrete abnormality. ASSESSMENT: Negative, BI-RAD 1 RECOMMENDATION: Routine screening mammogram of both breasts in 1 year.
== END | disposition home or self-care (01) ==
LOC: WWCWWP 09:26
PROVIDERS: ATTEND Obstetrics & Gynecology
DX: Z12.31 Encounter for screening mammogram for malignant neoplasm of breast (principal)
CPT/HCPCS: 77063; 77067

== ENCOUNTER → 2019-10-19 | Outpatient (CLI) | payer MEDICARE ==
--- NOTE | 2019-10-19 14:02 | CTL ---
EXAMINATION TYPE: CT Low Dose Lung DATE OF EXAM ORDERED: 10/19/2019 HISTORY: Personal history of tobacco abuse. Lung cancer screening CT DLP: [address]DI: 1.84 mGy Automated exposure control for dose reduction was used. SCREENING VISIT: Initial COMPARISON: None TECHNIQUE: Low dose computed tomography scan was performed through the chest at 1 mm thick sections a nd reconstructed images in the coronal plane at [address] DIAGNOSTIC QUALITY: Limited, but interpretable FINDINGS: LUNG NODULES: Present, detailed below: Calcified subpleural anterolateral right apical benign granuloma on image 44 measures 2 mm. No suspicious pulmonary nodules. LUNGS: COPD: Severity: Mild Fibrosis: Severity: None Lymph nodes: No enlarged lymph nodes RIGHT PLEURAL SPACE: Effusion: None Calcification: None Thickening: None Pneumothorax: None LEFT PLEURAL SPACE: Effusion: None Calcification: None Thickening: None Pneumothorax: None HEART: Heart Size: Normal Coronary calcification: None Pericardial effusion: None OTHER FINDINGS: Upper abdomen: 1.0 cm left hepatic lobe cyst is incidentally seen. Cholecystectomy. Bony thorax: Mild multilevel degenerative disc disease of the spine. Supraclavicular region: Unremarkable IMPRESSION: Lung RADS 2-benign. FOLLOW UP CT CHEST RECOMMENDATION: Annual screening low dose CT thorax is recommended in [address] LUNG RAD: 2
== END | disposition home or self-care (01) ==
LOC: RADCTMAIN 12:14
DX: Z12.2 Encounter for screening for malignant neoplasm of respiratory organs (principal); Z87.891 Personal history of nicotine dependence

== ENCOUNTER → 2020-10-13 | Outpatient (CLI) | payer MEDICARE ==
--- NOTE | 2020-10-13 20:37 | MR ---
EXAMINATION TYPE: MR lumbar spine wo/w con DATE OF EXAM: 10/13/2020 COMPARISON: None HISTORY: Back pain, numbness, and nerve pain with hx of 4 back pain CONTRAST: Standard multiplanar, multisequence MRI departmental protocol utilizing 7.5ml mL intravenous Gadavist gadolinium contrast. Lumbar vertebra have normal alignment. There is narrowing of disc spaces at L4-5 and L5-S1 with sligh t decreased signal in the disks. There is previous posterior fusion surgery. There is laminectomy def ect at L4-L5. There is no compression fracture. There is mild hypertrophic facet arthropathy at L3-4 with mild lateral recess stenosis. I see no focal bone destruction. There is no lumbar paraspinal mas s. The contrast images show no pathologic enhancement. The lumbar neural foramina are fairly well-lele ntained. IMPRESSION: Previous surgery at L4-5. Laminectomy defect. No spinal stenosis. Minimal lateral recess stenosis at L3-4. No fracture.
== END | disposition home or self-care (01) ==
LOC: RADMRIMAIN 17:04
PROVIDERS: ATTEND Physical Medicine & Rehabilitation
DX: M48.061 Spinal stenosis, lumbar region without neurogenic claudication (principal); Z98.890 Other specified postprocedural states
CPT/HCPCS: 72158; A9585

== ENCOUNTER → 2020-12-05 | Outpatient (CLI) | payer MEDICARE ==
[2020-12-05 14:12] VITALS: BP 131/85; PULSE 82; RESP 18; TEMP 97.8
--- NOTE | 2020-12-05 14:51 | P.HPOB ---
History of Present Illness H&P Date: 12/05/20 Chief Complaint: The patient is here for her routine gynecologic exam and ma mmogram. This is a 60-year-old with an LMP of 1990. The patient is status post FILOMENA/BSO for benign reasons. The patient has been using HRT in the form of subdermal pellets which she gets from Dr. Campos. She states she is trying to wean down from the HRT which was typically given every 3 months. She has not receive this in 5 months and states she is noticing some worsening in hot fla shes and in cognition and attributes this to decrease hormone levels in her body. She is otherwise without complaints. Review of Systems The patient has gained about 3 pounds over the past year. She would like to lose some weight. She denies respiratory, cardiac, or G.I. problems. Past Medical History Past Medical History: Thyroid Disorder Additional Past Medical History / Comment(s): Chronic back problems. 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 History of Any Multi-Drug Resistant Organisms: None Reported Past Surgical History: Back Surgery, Hysterectomy Additional Past Surgical History / Comment(s): FILOMENA/BSO in 1990. 4 back surgeries. Yeison fundoplication. Colonoscopy 2019(2nd, next after 5yrs). Past Psychological History: Anxiety Smoking Status: Former smoker Past Alcohol Use History: Occasional (2 per week) Additional Past Alcohol Use History / Comment(s): Quit smoking in 2007. Past Drug Use History: None Reported Additional History: She has been since 1981 and is disabled. - Past Family History Mother Family Medical History: Cancer, COPD Additional Family Medical History / Comment(s): Gastric and uterine cancer. Father Family Medical History: Cancer Additional Family Medical History / Comment(s): Bladder cancer. Medications and Allergies Home Medications Medication Instructions Recorded Confirmed Type ALPRAZolam [Xanax] 1 mg PO HS PRN 06/21/19 12/05/20 History L.acidoph,Paracasei, B.lactis 1 each PO DAILY 08/24/19 12/05/20 History [Probiotic] Levothyroxine Sodium [Tirosint] 125 mcg PO DAILY 08/24/19 12/05/20 History Biotin 5,000 mcg PO DAILY 12/05/20 12/05/20 History Calcium Carbonate [Calcium] 600 mg PO DAILY 12/05/20 12/05/20 History Cyanocobalamin (Vitamin B-12) 2,000 mcg PO DAILY 12/05/20 12/05/20 History [Vitamin B-12] Allergies Allergy/AdvReac Type Severity Reaction Status Date / Time Sulfa (Sulfonamide Allergy Rash/Hives Verified 12/05/20 14:03 Antibiotics) codeine AdvReac MIGRAINE Verified 12/05/20 14:03 Exam Vital Signs Temp Pulse Resp BP Pulse Ox 12/05/20 14:06 97.8 F 82 18 131/85 94 L Intake and Output 12/04/20 12/05/20 12/05/20 22:59 06:59 14:59 Other: Weight 78.925 kg Height 5 feet 4 inches, weight 174 pounds, BMI 29.9. This is a well-developed well-nourished white female who is alert and oriented times 3 in no acute distress, but states she would rather stand than sit for a long period of time because of back problems. HEENT: Within normal limits. NECK: Supple without mass or thyromegaly. CHEST AND LUNGS: Clear to auscultation. HEART: Regular rate and rhythm. BREASTS: Are without mass or discharge. AXILLARY EXAM: Negative for adenopathy. BACK: Negative for CVA tenderness. ABDOMEN: Soft, nontender, without palpable masses. PELVIC EXAM: External genitalia appears normal with minimal atrophy. Vagina appears normal minimal atrophy. There is no evidence of prolapse. Bimanual examination is negative for mass or tenderness. RECTAL EXAM: Rectovaginal exam is negative for mass or tenderness and is negative for occult blood. EXTREMITIES: Nontender. IMPRESSION: 1. 60-year-old menopausal female status post FILOMENA/BSO for benign reasons with normal gynecologic exam. 2. The patient uses subcutaneous HRT for menopausal symptoms and this is given through a different doctor. The patient has been trying to wean down from the HRT use. PLAN: 1. Pap smears have been discontinued. 2. Self breast awareness was discussed with the patient. 3. Screening mammogram will be done today. 4. Osteoporosis prevention was discussed. I have stressed the importance of adequate calcium, vitamin D and regular exercise. Recommended amounts of calcium and vitamin D were also discussed. I have recommended bone density testing at age 61 and we will plan on doing this at her next yearly appointment here. 5. We have again discussed HRT as well as the possible increased risk for stroke. She will continue to get her HRT from the doctor that has been prescribed it for her. I have recommended that she try to wean down and possibly off of the HRT because of risks. After reviewing the pros and cons, the patient states she will try to wean down to the lowest effective amount. 6. Weight control was discussed with the patient. I have stressed the importance of good nutrition, regular exercise, adequate fiber in her diet and regular meals. 7. She was advised to return in one year for her annual well woman exam.
--- NOTE | 2020-12-07 11:36 | MM ---
Reason for exam: screening (asymptomatic). Last mammogram was performed 1 year and 3 months ago. History: Patient is postmenopausal. Family history of breast cancer in mother at age 50. Taking estrogen beginning at age 30. Physical Findings: A clinical breast exam by your physician is recommended on an annual basis and results should be correlated with mammographic findings. MG 3D Screening Mammo W/Cad Bilateral CC and MLO view(s) were taken. XCCL view(s) were taken of the left breast. Prior study comparison: August 24, 2019, bilateral MG 3d screening mammo w/cad. February 27, 2018, mammogram. The breast tissue is heterogeneously dense. This may lower the sensitivity of mammography. No significant changes when compared with prior studies. ASSESSMENT: Benign, BI-RAD 2 RECOMMENDATION: Routine screening mammogram of both breasts in 1 year.
== END | disposition home or self-care (01) ==
LOC: WWCWWP 13:55
PROVIDERS: ATTEND Obstetrics & Gynecology
DX: Z12.31 Encounter for screening mammogram for malignant neoplasm of breast (principal)
CPT/HCPCS: 77063; 77067

== ENCOUNTER 2021-03-14 15:25 | Observation (INO) | payer MEDICARE ==
[2021-03-14 16:15] LABS: Basophils # (A) 0.1 k/uL (0-0.2); Basophils % (A) 1 %; Eosinophils # (A) 0.4 k/uL (0-0.7); Eosinophils % (A) 3 %; HCT 44.5 % (34.0-46.0); HGB 14.8 gm/dL (11.4-16.0); Lymphocytes # (A) 2.6 k/uL (1.0-4.8); Lymphocytes % (A) 20 %; MCH 29.2 pg (25.0-35.0); MCHC 33.3 g/dL (31.0-37.0); MCV 87.8 fL (80.0-100.0); Mean Platelet Volume 7.3; Monocytes # (A) 0.7 k/uL (0-1.0); Monocytes % (A) 5 %; Neutrophils # (A) 9.2 k/uL (1.3-7.7); Neutrophils % (A) 70 %; Platelet Count 286 k/uL (150-450); RBC 5.07 m/uL (3.80-5.40); RDW 12.9 % (11.5-15.5); WBC 13.1 k/uL (3.8-10.6)
--- NOTE | 2021-03-14 16:21 | ED ---
General Adult HPI - General Chief complaint: Chest Pain Stated complaint: Chest/Back Pain Time Seen by Provider: 03/14/21 15:36 Source: patient Mode of arrival: ambulatory Limitations: no limitations - History of Present Illness Initial comments: Dictation was produced using [employer] dictation software. please excuse any grammatical, word or spelling errors. This patient was cared for during a federal and state declared state of emergency secondary to Covid 19 Chief Complaint: 60-year-old female presents to the emergency department for chest pain History of Present Illness: Patient is a 60-year-old. She presents the emergency department for chest pain. She's been having symptoms for 3 weeks. She saw her primary care doctor and was started on a course of steroids and Protonix. She states that symptoms never really resolved. States that the pain is substernal and radiates to her back. She reports that it slightly radiates to the left jaw. No Fagan diaphoresis or nausea. She denies any history of smoking. No history of diabetes high cholesterol or hypertension. She does report strong family history of cardiac disease. States that several of her first degree relatives had heart attacks or heart issues in their 40s. Denies any numbness and paresthesias to the arms or legs. Denies any shortness of breath. She denies that her symptoms are pleuritic. The ROS documented in this emergency department record has been reviewed and confirmed by me. Those systems with pertinent positive or negative responses have been documented in the HPI. All other systems are other negative and/or noncontributory. PHYSICAL EXAM: General Impression: Alert and oriented x3, not in acute distress HEENT: Normocephalic atraumatic, extra-ocular movements intact, pupils equal and reactive to light bilaterally, mucous membranes moist. Cardiovascular: Heart regular rate and rhythm Chest: Able to complete full sentences, no retractions, no tachypnea Abdomen: abdomen soft, non-tender, non-distended, no organomegaly Musculoskeletal: Pulses present and equal in all extremities, no peripheral edema Motor: no focal deficits noted Neurological: CN II-XII grossly intact, no focal motor or sensory deficits noted Skin: Intact with no visualized rashes Psych: Normal affect and mood ED course: 60-year-old feel presents with atypical chest pain typical features. All signs upon arrival shows heart rate of 103, rest of vital signs within acceptable limits. EKG shows S1 every 3 T3 pattern. There is no old EKG for comparison. Patient's well-appearing at bedside. Patient refusing any analgesic medications. Abdomen evaluation tape. Mild leukocytosis 13.1. Coag panel is negative. D- dimer is negative. Metabolic panel is negative. First troponin is negative. Chest x-ray is nonacute. Disposition options are discussed patient. Patient is agreeable for admission for serial troponins, cardiac monitoring and cariology consultation. Patient be admitted to [facility] hospitalist group. Case discussed with Philippe Farfan of [facility]. Aspirin administered. EKG interpretation: Ventricular rate 98, normal sinus rhythm,. 136, QRS 82, QTc 444. No OK prolongation, no QTC prolongation, no ST or T-wave changes noted. Positive for S1 q 3 T3. Overall this EKG is nonspecific. - Related Data Home Medications Medication Instructions Recorded Confirmed ALPRAZolam [Xanax] 1 mg PO DAILY 06/21/19 03/14/21 L.acidoph,Paracasei, B.lactis 1 cap PO DAILY 08/24/19 03/14/21 [Probiotic] Levothyroxine Sodium [Tirosint] 125 mcg PO SUMOTUWETHFR 08/24/19 03/14/21 Cyanocobalamin (Vitamin B-12) 2,000 mcg PO DAILY 12/05/20 03/14/21 [Vitamin B-12] Cholecalciferol [Vitamin D3 (25 25 mcg PO DAILY 03/14/21 03/14/21 Mcg = 1000 Iu)] Levothyroxine Sodium [Tirosint] 250 mcg PO SA 03/14/21 03/14/21 Magnesium Oxide [Mag-Ox] 400 mg PO DAILY 03/14/21 03/14/21 Pantoprazole Sodium [Protonix] 40 mg PO DAILY 03/14/21 03/14/21 Allergies Allergy/AdvReac Type Severity Reaction Status Date / Time Sulfa (Sulfonamide Allergy Rash/Hives Verified 03/14/21 16:42 Antibiotics) codeine AdvReac MIGRAINE Verified 03/14/21 16:42 Review of Systems ROS Statement: Those systems with pertinent positive or pertinent negative responses have been documented in the HPI. ROS Other: All systems not noted in ROS Statement are negative. Past Medical History Past Medical History: Thyroid Disorder Additional Past Medical History / Comment(s): Chronic back problems. 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 History of Any Multi-Drug Resistant Organisms: None Reported Past Surgical History: Back Surgery, Hysterectomy Additional Past Surgical History / Comment(s): FILOMENA/BSO in 1990. 4 back surgeries. Yeison fundoplication. Colonoscopy 2019(2nd, next after 5yrs). Past Psychological History: Anxiety Smoking Status: Former smoker Past Alcohol Use History: Occasional Past Drug Use History: None Reported - Past Family History Mother Family Medical History: Cancer, COPD Additional Family Medical History / Comment(s): Gastric and uterine cancer. Father Family Medical History: Cancer Additional Family Medical History / Comment(s): Bladder cancer. General Exam Limitations: no limitations Course Vital Signs 03/14/21 15:33 Temperature 97.9 F Pulse Rate 103 H Respiratory 18 Rate Blood Pressure 161/75 O2 Sat by Pulse 99 Oximetry Medical Decision Making - Lab Data Result diagrams: 03/14/21 16:08 03/14/21 16:08 Lab Results 03/14/21 03/14/21 03/14/21 Range/Units 16:08 16:08 16:08 WBC 13.1 H (3.8-10.6) k/uL RBC 5.07 (3.80-5.40) m/uL Hgb 14.8 (11.4-16.0) gm/dL Hct 44.5 (34.0-46.0) % MCV 87.8 (80.0-100.0) fL MCH 29.2 (25.0-35.0) pg MCHC 33.3 (31.0-37.0) g/dL RDW 12.9 (11.5-15.5) % Plt Count 286 (150-450) k/uL MPV 7.3 Neutrophils % 70 % Lymphocytes % 20 % Monocytes % 5 % Eosinophils % 3 % Basophils % 1 % Neutrophils # 9.2 H (1.3-7.7) k/uL Lymphocytes # 2.6 (1.0-4.8) k/uL Monocytes # 0.7 (0-1.0) k/uL Eosinophils # 0.4 (0-0.7) k/uL Basophils # 0.1 (0-0.2) k/uL PT 9.8 (9.0-12.0) sec INR 0.9 (<1.2) APTT 23.4 (22.0-30.0) sec D-Dimer <0.17 (<0.60) mg/L FEU Sodium 135 L (137-145) mmol/L Potassium 4.2 (3.5-5.1) mmol/L Chloride 103 (98-107) mmol/L Carbon Dioxide 27 (22-30) mmol/L Anion Gap 5 mmol/L BUN 17 (7-17) mg/dL Creatinine 0.79 (0.52-1.04) mg/dL Est GFR (CKD-EPI)AfAm >90 (>60 ml/min/1.73 sqM) Est GFR (CKD-EPI)NonAf 83 (>60 ml/min/1.73 sqM) Glucose 104 H (74-99) mg/dL Calcium 9.1 (8.4-10.2) mg/dL Troponin I (0.000-0.034) ng/mL 03/14/21 Range/Units 16:08 WBC (3.8-10.6) k/uL RBC (3.80-5.40) m/uL Hgb (11.4-16.0) gm/dL Hct (34.0-46.0) % MCV (80.0-100.0) fL MCH (25.0-35.0) pg MCHC (31.0-37.0) g/dL RDW (11.5-15.5) % Plt Count (150-450) k/uL MPV Neutrophils % % Lymphocytes % % Monocytes % % Eosinophils % % Basophils % % Neutrophils # (1.3-7.7) k/uL Lymphocytes # (1.0-4.8) k/uL Monocytes # (0-1.0) k/uL Eosinophils # (0-0.7) k/uL Basophils # (0-0.2) k/uL PT (9.0-12.0) sec INR (<1.2) APTT (22.0-30.0) sec D-Dimer (<0.60) mg/L FEU Sodium (137-145) mmol/L Potassium (3.5-5.1) mmol/L Chloride (98-107) mmol/L Carbon Dioxide (22-30) mmol/L Anion Gap mmol/L BUN (7-17) mg/dL Creatinine (0.52-1.04) mg/dL Est GFR (CKD-EPI)AfAm (>60 ml/min/1.73 sqM) Est GFR (CKD-EPI)NonAf (>60 ml/min/1.73 sqM) Glucose (74-99) mg/dL Calcium (8.4-10.2) mg/dL Troponin I <0.012 (0.000-0.034) ng/mL Disposition Clinical Impression: Chest pain Disposition: ADMITTED IP TO THIS HOSP Condition: Fair Referrals: Jj Moya MD [Primary Care Provider] - 1-2 days Decision Time: 17:46
[2021-03-14 16:24] LABS: African American GFR (CKD) >90 (>60 ml/min/1.73 sqM); Anion Gap 5 mmol/L; Blood Urea Nitrogen 17 mg/dL (7-17); Calcium 9.1 mg/dL (8.4-10.2); Carbon Dioxide 27 mmol/L (22-30); Chloride 103 mmol/L (98-107); Glucose 104 mg/dL (74-99); Non-African American GFR(CKD) 83 (>60 ml/min/1.73 sqM); Potassium 4.2 mmol/L (3.5-5.1); Sodium 135 mmol/L (137-145)
[2021-03-14 16:31] LABS: D-Dimer <0.17 mg/L FEU (<0.60); INR 0.9 (<1.2); Prothrombin Time 9.8 sec (9.0-12.0)
[2021-03-14 16:32] LABS: Partial Thromboplastin Time 23.4 sec (22.0-30.0)
--- NOTE | 2021-03-14 17:32 | XR ---
EXAM: XR Chest, 2 Views CLINICAL HISTORY: ITS.REASON XR Reason: pain TECHNIQUE: Frontal and lateral views of the chest. COMPARISON: None FINDINGS: Hardware: None. Lungs/pleura: Normal. No focal consolidation. No pleural effusion or pneumothorax. Heart/mediastinum: Normal. No cardiomegaly. Soft tissues: Unremarkable. Bones: No acute fracture. Upper abdomen: Cholecystectomy clips in the right upper quadrant. IMPRESSION: No acute disease identified.
[2021-03-14] MEDS ORDERED: ASPIRIN 81 MG PO STA (17:43)
[2021-03-14] MEDS ORDERED: MORPHINE SULFATE 4 MG/ML SYRINGE IVP PRN (22:57)
[2021-03-14] MEDS ORDERED: ALPRAZolam 1 MG TAB PO SCH (23:00)
[2021-03-14] MEDS: ACETAMINOPHEN TAB 325 MG TAB PO PRN (23:35)
[2021-03-15 02:41] LABS: Cholesterol 193 mg/dL (<200); HDL Cholesterol 62 mg/dL (40-60); LDL Cholesterol,Calculated 86 mg/dL (0-99); Triglycerides 223 mg/dL (<150)
[2021-03-15 02:59] VITALS: RESP 16
[2021-03-15] MEDS: LEVOTHYROXINE 125 MCG TAB PO SCH ×2 (06:05→06:08)
[2021-03-15] MEDS ORDERED: PANTOPRAZOLE 40 MG TABLET PO SCH (07:30)
[2021-03-15 07:37] VITALS: BP 109/73; PULSE 77; TEMP 97.7
[2021-03-15] MEDS ORDERED: LACTOBACILLUS ACIDOPH & BULGAR 1 EACH PACKET PO SCH (09:00)
[2021-03-15] MEDS ORDERED: MAGNESIUM OXIDE 400 MG TAB PO SCH (09:00)
[2021-03-15] MEDS ORDERED: ASPIRIN 325 MG TAB PO SCH (09:00)
[2021-03-15] MEDS ORDERED: CHOLECALCIFEROL 25 MCG (1000 IU) TABLET PO SCH (09:00)
[2021-03-15] MEDS ORDERED: CYANOCOBALAMIN 500 MCG TAB PO SCH (09:00)
[2021-03-15] MEDS ORDERED: ASPIRIN 81 MG PO SCH (09:00)
[2021-03-15] MEDS: ACETAMINOPHEN TAB 325 MG TAB PO PRN (09:19)
--- NOTE | 2021-03-15 10:11 | P.CRDCN ---
History of Present Illness Consult date: 03/15/21 History of present illness: HISTORY OF PRESENT ILLNESS: This is a 60-year-old female with a past medical history significant for hypothyroidism, and chronic back pain with a history of 4 back surgeries. 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 We have been asked to see the patient in consultation for chest pain. Patient examined at the bedside. Patient states she has been having chest pain for the last 3 weeks. She states this began a couple days after receiving her second dose of the Covid vaccine. She was seen by her PCP and was placed on prednisone and protonix with no relief. She states she went back to her PCP who recommended she come to the hospital for further evaluation. Patient states the pain is constant. She is unable to recall if there is anything makes it better or worse. She describes the pain as a pressure in the middle of her chest and also states it feels achy. She states sometimes the pain radiates underneath her left breast. She denies shortness of breath. She denies lightheadedness or dizziness. She denies any tenderness with chest wall palpation. She is a former cigarette smoker and quit smoking in 2007. She reports occasional alcohol use. She denies drug use. She states her dad had a heart attack at age of 52 and her mom had an enlarged heart and congestive heart failure. EKG reveals sinus mechanism with no signs of acute ischemia Chest xray negative for acute process Laboratory data: WBC 13.1. Hemoglobin 14.8. Platelet count 286. D-dimer 0.17. Sodium 135. Potassium 4.2. BUN 17. Creatinine 0.79. Troponin negative 3. Current home cardiac medications include none REVIEW OF SYSTEMS: At the time of my exam: CONSTITUTIONAL: Denies fever or chills. HEENT: Denies blurred vision, vision changes, or eye pain. Denies hemoptysis CARDIOVASCULAR: Denies chest pain. Denies orthopnea. Denies PND. Denies palpitations RESPIRATORY: Denies shortness of breath. GASTROINTESTINAL: Denies abdominal pain. Denies nausea or vomiting. HEMATOLOGIC: Denies bleeding disorders. GENITOURINARY: Denies any blood in urine. SKIN: Denies pruitis. Denies rash. PHYSICAL EXAM: VITAL SIGNS: Reviewed. GENERAL: Well-developed in no acute distress. HEENT: Head is normocephalic. Pupils are equal, round. Sclerae anicteric. Mucous membranes of the mouth are moist. Neck supple. No JVD or thyromegaly LUNGS: Respirations even and unlabored. Lungs essentially clear to auscultation bilaterally. HEART: Regular rate and rhythm. S1 and S2 heard. ABDOMEN: Soft. Nondistended. Nontender. EXTREMITIES: Normal range of motion. No clubbing or cyanosis. Peripheral pulses intact. No lower extremity edema NEUROLOGIC: Awake and alert. Oriented x 3. ASSESSMENT: Chest pain 3 weeks Hypothyroidism Chronic back pain with history of 4 back surgeries Family history of premature coronary artery disease PLAN: An acute coronary event has been ruled out Obtain 2-D echo to assess cardiac structure and function Obtain chest CTA Patient to undergo stress echocardiogram to assess for reversible ischemia Further recommendations pending patient's course Nurse practitioner note has been reviewed by physician. Signing provider agrees with the documented findings, assessment, and plan of care. Past Medical History Past Medical History: Thyroid Disorder Additional Past Medical History / Comment(s): Chronic back problems. 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 History of Any Multi-Drug Resistant Organisms: None Reported Past Surgical History: Back Surgery, Hysterectomy Additional Past Surgical History / Comment(s): FILOMENA/BSO in 1990. 4 back surgeries. Yeison fundoplication. Colonoscopy 2019(2nd, next after 5yrs). Additional Past Anesthesia/Blood Transfusion Reaction / Comment(s): patient states that her bladder stops working with anesthesia. Past Psychological History: Anxiety Smoking Status: Former smoker Past Alcohol Use History: Occasional Additional Past Alcohol Use History / Comment(s): Quit smoking in 2007. Past Drug Use History: None Reported - Past Family History Mother Family Medical History: Cancer, COPD Additional Family Medical History / Comment(s): Gastric and uterine cancer. Father Family Medical History: Cancer Additional Family Medical History / Comment(s): Bladder cancer. Medications and Allergies Home Medications Medication Instructions Recorded Confirmed Type ALPRAZolam [Xanax] 1 mg PO DAILY 06/21/19 03/14/21 History L.acidoph,Paracasei, B.lactis 1 cap PO DAILY 08/24/19 03/14/21 History [Probiotic] Levothyroxine Sodium [Tirosint] 125 mcg PO SUMOTUWETHFR 08/24/19 03/14/21 History Cyanocobalamin (Vitamin B-12) 2,000 mcg PO DAILY 12/05/20 03/14/21 History [Vitamin B-12] Cholecalciferol [Vitamin D3 (25 25 mcg PO DAILY 03/14/21 03/14/21 History Mcg = 1000 Iu)] Levothyroxine Sodium [Tirosint] 250 mcg PO SA 03/14/21 03/14/21 History Magnesium Oxide [Mag-Ox] 400 mg PO DAILY 03/14/21 03/14/21 History Pantoprazole Sodium [Protonix] 40 mg PO DAILY 03/14/21 03/14/21 History Allergies Allergy/AdvReac Type Severity Reaction Status Date / Time Sulfa (Sulfonamide Allergy Rash/Hives Verified 03/14/21 16:42 Antibiotics) codeine AdvReac MIGRAINE Verified 03/14/21 16:42 Physical Exam Vitals: Vital Signs Temp Pulse Pulse Pulse Resp BP BP 03/15/21 07:00 97.7 F 77 16 03/15/21 02:00 97.8 F 76 16 03/14/21 20:58 97.8 F 82 18 144/89 03/14/21 18:10 88 18 153/90 03/14/21 15:33 97.9 F 103 H 18 161/75 BP Pulse Ox 03/15/21 07:00 109/73 96 03/15/21 02:00 95/61 97 03/14/21 20:58 98 03/14/21 18:10 99 03/14/21 15:33 99 Intake and Output 03/14/21 03/15/21 03/15/21 22:59 06:59 14:59 Other: Voiding Method Toilet # Voids 1 2 Weight 77.111 kg Results 03/14/21 16:08 03/14/21 16:08 Cardiac Enzymes 03/14/21 03/14/21 03/14/21 Range/Units 16:08 19:51 22:41 Troponin I <0.012 <0.012 <0.012 (0.000-0.034) ng/mL Coagulation 03/14/21 Range/Units 16:08 PT 9.8 (9.0-12.0) sec APTT 23.4 (22.0-30.0) sec Lipids 03/14/21 Range/Units 14:12 Triglycerides 223 H (<150) mg/dL Cholesterol 193 (<200) mg/dL HDL Cholesterol 62 H (40-60) mg/dL CBC 03/14/21 Range/Units 16:08 WBC 13.1 H (3.8-10.6) k/uL RBC 5.07 (3.80-5.40) m/uL Hgb 14.8 (11.4-16.0) gm/dL Hct 44.5 (34.0-46.0) % Plt Count 286 (150-450) k/uL Comprehensive Metabolic Panel 03/14/21 Range/Units 16:08 Sodium 135 L (137-145) mmol/L Potassium 4.2 (3.5-5.1) mmol/L Chloride 103 (98-107) mmol/L Carbon Dioxide 27 (22-30) mmol/L BUN 17 (7-17) mg/dL Creatinine 0.79 (0.52-1.04) mg/dL Glucose 104 H (74-99) mg/dL Calcium 9.1 (8.4-10.2) mg/dL Current Medications Generic Name Dose Route Start Last Admin Trade Name Freq PRN Reason Stop Dose Admin Acetaminophen 650 mg 03/14/21 23:13 03/15/21 09:19 Acetaminophen Tab 325 Mg Tab PO 650 mg Q4HR PRN Administration Fever and/ or Pain Alprazolam 1 mg 03/14/21 23:00 03/14/21 23:25 Alprazolam 1 Mg Tab PO 1 mg HS JAMES Administration Aspirin 81 mg 03/15/21 09:00 03/15/21 09:04 Aspirin 81 Mg PO 81 mg DAILY JAMES Administration Cholecalciferol 25 mcg 03/15/21 09:00 03/15/21 09:05 Cholecalciferol 25 Mcg (1000 Iu) Tablet PO 25 mcg DAILY JAMES Administration Cyanocobalamin 2,000 mcg 03/15/21 09:00 03/15/21 09:05 Cyanocobalamin 500 Mcg Tab PO 2,000 mcg DAILY JAMES Administration Lactobacillus Acidoph/Bulgaricus 1 each 03/15/21 09:00 Lactobacillus Acidoph & Bulgar 1 Each Packet PO DAILY JAMES Levothyroxine Sodium 125 mcg 03/15/21 06:30 03/15/21 06:08 Levothyroxine 125 Mcg Tab PO Not Given [id number] JAMES Levothyroxine Sodium 250 mcg 03/17/21 06:30 Levothyroxine 125 Mcg Tab PO SA [facility] Magnesium Oxide 400 mg 03/15/21 09:00 03/15/21 09:05 Magnesium Oxide 400 Mg Tab PO 400 mg DAILY JAMES Administration Morphine Sulfate 4 mg 03/14/21 22:57 Morphine Sulfate 4 Mg/Ml Syringe IVP Q6HR PRN Severe Pain Pantoprazole Sodium 40 mg 03/15/21 07:30 03/15/21 09:05 Pantoprazole 40 Mg Tablet PO 40 mg [id number] JAMES Administration Intake and Output 03/14/21 03/15/21 03/15/21 22:59 06:59 14:59 Other: Voiding Method Toilet # Voids 1 2 Weight 77.111 kg 03/14/21 16:08 03/14/21 16:08
[2021-03-15] MEDS ORDERED: KETOROLAC 15 MG/ML 1 ML VIAL IVP STA (11:48)
--- NOTE | 2021-03-15 12:04 | P.HPIM ---
History of Present Illness 60-year-old pleasant female came in with complaints of mid thoracic chest pain and neck pain. Patient pain is constant and nonradiating 5/10 in severity now, after the exercise stress test her pain is worse in 7/10 in severity patient any. We noncardiac not associated with food nonpleuritic. Patient had a chest CT angiogram to rule out pulmonary embolism the official read is still pending. If stresses is negative and CT angios negative patient was discharged today patient most probably has a musculoskeletal pain from a cervical thoracic degenerative disc disease patient has chronic low back pain as well. Patient denied any dizziness lightheadedness shortness of breath. Review of Systems REVIEW OF SYSTEMS: CONSTITUTIONAL: No fever, no malaise, no fatigue. HEENT: No recent visual problems or hearing problems. Denied any sore throat. CARDIOVASCULAR: No orthopnea, PND, no palpitations, no syncope. PULMONARY: No shortness of breath, no cough, no hemoptysis. GASTROINTESTINAL: No diarrhea, no nausea, no vomiting, no abdominal pain. NEUROLOGICAL: No headaches, no weakness, no numbness. HEMATOLOGICAL: Denies any bleeding or petechiae. GENITOURINARY: Denies any burning micturition, frequency, or urgency. MUSCULOSKELETAL/RHEUMATOLOGICAL: As mentioned in HPI ENDOCRINE: Denies any polyuria or polydipsia. The rest of the 14-point review of systems is negative. Past Medical History Past Medical History: Thyroid Disorder Additional Past Medical History / Comment(s): Chronic back problems. 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 History of Any Multi-Drug Resistant Organisms: None Reported Past Surgical History: Back Surgery, Hysterectomy Additional Past Surgical History / Comment(s): FILOMENA/BSO in 1990. 4 back surgeries. Yeison fundoplication. Colonoscopy 2019(2nd, next after 5yrs). Additional Past Anesthesia/Blood Transfusion Reaction / Comment(s): patient states that her bladder stops working with anesthesia. Past Psychological History: Anxiety Smoking Status: Former smoker Past Alcohol Use History: Occasional Additional Past Alcohol Use History / Comment(s): Quit smoking in 2007. Past Drug Use History: None Reported - Past Family History Mother Family Medical History: Cancer, COPD Additional Family Medical History / Comment(s): Gastric and uterine cancer. Father Family Medical History: Cancer Additional Family Medical History / Comment(s): Bladder cancer. Medications and Allergies Home Medications Medication Instructions Recorded Confirmed Type ALPRAZolam [Xanax] 1 mg PO DAILY 06/21/19 03/14/21 History L.acidoph,Paracasei, B.lactis 1 cap PO DAILY 08/24/19 03/14/21 History [Probiotic] Levothyroxine Sodium [Tirosint] 125 mcg PO SUMOTUWETHFR 08/24/19 03/14/21 History Cyanocobalamin (Vitamin B-12) 2,000 mcg PO DAILY 12/05/20 03/14/21 History [Vitamin B-12] Cholecalciferol [Vitamin D3 (25 25 mcg PO DAILY 03/14/21 03/14/21 History Mcg = 1000 Iu)] Levothyroxine Sodium [Tirosint] 250 mcg PO SA 03/14/21 03/14/21 History Magnesium Oxide [Mag-Ox] 400 mg PO DAILY 03/14/21 03/14/21 History Pantoprazole Sodium [Protonix] 40 mg PO DAILY 03/14/21 03/14/21 History Allergies Allergy/AdvReac Type Severity Reaction Status Date / Time Sulfa (Sulfonamide Allergy Rash/Hives Verified 03/14/21 16:42 Antibiotics) codeine AdvReac MIGRAINE Verified 03/14/21 16:42 Physical Exam Vitals: Vital Signs Temp Pulse Pulse Pulse Resp BP BP 03/15/21 07:00 97.7 F 77 16 03/15/21 02:00 97.8 F 76 16 03/14/21 20:58 97.8 F 82 18 144/89 03/14/21 18:10 88 18 153/90 03/14/21 15:33 97.9 F 103 H 18 161/75 BP Pulse Ox 03/15/21 07:00 109/73 96 03/15/21 02:00 95/61 97 03/14/21 20:58 98 03/14/21 18:10 99 03/14/21 15:33 99 Intake and Output 03/14/21 03/15/21 03/15/21 22:59 06:59 14:59 Other: Voiding Method Toilet # Voids 1 2 Weight 77.111 kg 77.11 kg PHYSICAL EXAMINATION: GENERAL: The patient is alert and oriented x3, not in any acute distress. Well developed, well nourished. HEENT: Pupils are round and equally reacting to light. EOMI. No scleral icterus. No conjunctival pallor. Normocephalic, atraumatic. No pharyngeal erythema. No thyromegaly. CARDIOVASCULAR: S1 and S2 present. No murmurs, rubs, or gallops. PULMONARY: Chest is clear to auscultation, no wheezing or crackles. ABDOMEN: Soft, nontender, nondistended, normoactive bowel sounds. No palpable organomegaly. MUSCULOSKELETAL: No joint swelling or deformity. EXTREMITIES: No cyanosis, clubbing, or pedal edema. NEUROLOGICAL: Gross neurological examination did not reveal any focal deficits. SKIN: No rashes. Results CBC & Chem 7: 03/14/21 16:08 03/14/21 16:08 Labs: Abnormal Lab Results - Last 24 Hours (Table) 03/14/21 03/14/21 03/14/21 Range/Units 14:12 16:08 16:08 WBC 13.1 H (3.8-10.6) k/uL Neutrophils # 9.2 H (1.3-7.7) k/uL Sodium 135 L (137-145) mmol/L Glucose 104 H (74-99) mg/dL Triglycerides 223 H (<150) mg/dL HDL Cholesterol 62 H (40-60) mg/dL Thrombosis Risk Factor Assmnt - Choose All That Apply Any of the Below Risk Factors Present?: No Other Risk Factors: No Other congenital or acquired thrombophilia - If yes, enter type in comment: No Thrombosis Risk Factor Assessment Level: Very Low Risk Assessment and Plan Plan: -Chest pain, thoracic back pain, neck pain: Rule out a concurrent syndromes patient underwent stress test. A CT angios the chest is pending. Most probably this pain is related to cervicothoracic degenerative disc disease. Patient will be given a dose of Toradol proximal will be discharged on meloxicam on miya ly basis patient had history of Yeison fundoplication gastroesophageal reflux disease. For which patient is already on Protonix which will be continued. We will rule out cardiac causes and pulmonary embolism before discharge. -Hyperthyroidism -Chronic low back pain -Gastroesophageal reflux disease A stress test and CT angios are negative for inducible ischemia and pulmonary embolus and respectively patient will be discharged today
--- NOTE | 2021-03-15 12:04 | P.DS ---
Providers Date of admission: 03/14/21 17:43 Attending physician: Amos Monteiro Consults: 03/14/21 17:43 Consult Physician Urgent Consulting Provider: Hakeem Jo Consult Reason/Comments: chest pain Do you want consulting provider notified?: Yes Primary care physician: Jj Moya MD Hospital Course: Refer to history of present illness for further details Patient Condition at Discharge: Fair Plan - Discharge Summary Discharge Rx Participant: No New Discharge Prescriptions: New Acetaminophen Tab [Tylenol] 650 mg PO Q4HR PRN tab PRN Reason: Fever And/ Or Pain Meloxicam 15 mg PO DAILY #30 tablet Continue ALPRAZolam [Xanax] 1 mg PO DAILY Levothyroxine Sodium [Tirosint] 125 mcg PO SUMOTUWETHFR L.acidoph,Paracasei, B.lactis [Probiotic] 1 cap PO DAILY Cyanocobalamin (Vitamin B-12) [Vitamin B-12] 2,000 mcg PO DAILY Pantoprazole Sodium [Protonix] 40 mg PO DAILY Magnesium Oxide [Mag-Ox] 400 mg PO DAILY Cholecalciferol [Vitamin D3 (25 Mcg = 1000 Iu)] 25 mcg PO DAILY Levothyroxine Sodium [Tirosint] 250 mcg PO SA Discharge Medication List ALPRAZolam [Xanax] 1 mg PO DAILY 06/21/19 [History] L.acidoph,Paracasei, B.lactis [Probiotic] 1 cap PO DAILY 08/24/19 [History] Levothyroxine Sodium [Tirosint] 125 mcg PO SUMOTUWETHFR 08/24/19 [History] Cyanocobalamin (Vitamin B-12) [Vitamin B-12] 2,000 mcg PO DAILY 12/05/20 [History] Cholecalciferol [Vitamin D3 (25 Mcg = 1000 Iu)] 25 mcg PO DAILY 03/14/21 [History] Levothyroxine Sodium [Tirosint] 250 mcg PO SA 03/14/21 [History] Magnesium Oxide [Mag-Ox] 400 mg PO DAILY 03/14/21 [History] Pantoprazole Sodium [Protonix] 40 mg PO DAILY 03/14/21 [History] Acetaminophen Tab [Tylenol] 650 mg PO Q4HR PRN tab 03/15/21 [Rx] Meloxicam 15 mg PO DAILY #30 tablet 03/15/21 [Rx] Follow up Appointment(s)/Referral(s): Jj Moya MD [Primary Care Provider] - 3 Days
--- NOTE | 2021-03-15 12:05 | CT ---
EXAMINATION TYPE: CT chest angio for PE DATE OF EXAM: 03/15/2021 COMPARISON: 10/19/2019 HISTORY: chest pain CT DLP: 217.9 mGycm Automated exposure control for dose reduction was used. CONTRAST: CT Chest for pulmonary embolism performed with with IV Contrast, patient injected with 100ml mL of Is ovue 370. FINDINGS: LUNGS: The lungs are grossly clear, there is no concerning parenchymal mass or nodule identified. T here is no pleural effusion or pneumothorax seen. The tracheobronchial tree is patent. There are cou ple 2 mm nodules in the upper lobe laterally axial image 32 and 30. Emphysematous changes are noted. MEDIASTINUM: There is satisfactory enhancement of the pulmonary artery and its branches, there is no CT evidence for pulmonary embolism. There are no greater than 1 cm hilar or mediastinal lymph nodes. Small pericardial effusion. OTHER: Postcholecystectomy changes noted. Hypertrophic and degenerative changes of the spine. IMPRESSION: 1. No diagnostic evidence of pulmonary embolism. 2. COPD with sub-5 mm right apical pulmonary nodules too small to characterize recommend 12 month fol low-up.
--- NOTE | 2021-03-15 13:01 | ECHOF ---
Referral Reason:chest pain MEASUREMENTS -------- HEIGHT: 162.6 cm WEIGHT: 77.1 kg BP: RVIDd: 2.3 cm (< 3.3) IVSd: 0.9 cm (0.6 - 1.1) LVIDd: 4.5 cm (3.9 - 5.3) LVPWd: 0.9 cm (0.6 - 1.1) IVSs: 1.3 cm LVIDs: 3.2 cm LVPWs: 1.3 cm LAESV Index (A-L): 23.06 ml/m Ao Diam: 3.3 cm (2.0 - 3.7) AV Cusp: 1.5 cm (1.5 - 2.6) LA Diam: 3.2 cm (2.7 - 3.8) MV EXCURSION: 15.184 mm (> 18.000) MV EF SLOPE: 112 mm/s (70 - 150) EPSS: 0.7 cm MV E Severo: 0.54 m/s MV DecT: 154 ms MV A Severo: 0.77 m/s MV E/A Ratio: 0.69 RAP: 5.00 mmHg RVSP: 15.95 mmHg FINDINGS -------- This was a technically good study. The left ventricular size is normal. Left ventricular wall thickness is normal. Overall left vent ricular systolic function is normal with, an EF between 55 - 60 %. The diastolic filling pattern is normal for the age of the patient 11.61. The right ventricle is normal in size. The left atrial size is normal. Normal LA size by volume 22+/-6 ml/m2. The right atrial size is normal. The aortic valve is trileaflet and appears structurally normal. The mitral valve is normal. There is trace mitral regurgitation. The tricuspid valve appears structurally normal. Trace tricuspid regurgitation present. Right anirudh tricular systolic pressure is normal at < 35 mmHg. There is no pulmonic regurgitation present. The aortic root size is normal. Normal inferior vena cava with normal inspiratory collapse consistent with estimated right atrial pre ssure of 5 mmHg. There is no pericardial effusion. CONCLUSIONS -------- 1. The left ventricular size is normal. 2. Left ventricular wall thickness is normal. 3. Overall left ventricular systolic function is normal with, an EF between 55 - 60 %. 4. The diastolic filling pattern is normal for the age of the patient 11.61 5. There is trace mitral regurgitation. 6. Trace tricuspid regurgitation present. 7. There is no pericardial effusion. MINERALOGY TEACHER: Miriam Honeycutt RDCS
--- NOTE | 2021-03-16 08:16 | ECHOS ---
Stress Test Results/Findings: Exam Performed: stress echo exercise Exam Date: 03/15/21 Reason for Exam: CP Height: 5 ft 4 in Weight: 77.11 kg Protocol: STRESS ECHO Stage: III Duration of Exercise: 10.30 Resting Heart Rate: 94 Resting Blood Pressure: 123/68 Maximum Achieved Heart Rate: 144 Maximum Achieved Blood Pressure: 135/72 85% PMHR: 137 100% PMHR: 161 METS: Technologist Comment: Stress Test Results/Findings: Patient underwent exercise stress echo with a Pepe protocol treadmill stress test. Patient exercised into Stage 3 for a total of 10 minutes and 30 seconds. Patient's maximum heart rate was 144 which represented 89 % age-predicted maximum heart rate. Patient was noted to have 6 out of 10 chest pain during exam. Stress EKG portion: At baseline patient's EKG showed normal sinus rhythm, normal axis, no significant ST or T wave abnormalities. At peak exercise, EKG showed no significant change from baseline, rare PVCs. Stress echo portion: 2-D echocardiogram was performed in the parasternal long, personal short, apical 2 and apical four-chamber views at rest, peak exercise and in recovery. At baseline, echocardiogram showed left ventricular ejection fraction 55% without wall motion abnormalities. With peak exercise, echocardiogram shows improvement in left ventricular ejection fraction, increase contractility, decrease in left ventricular dimension without wall motion abnormalities consistent with a normal response to exercise. Conclusions: 1. Normal EKG and echo response to exercise without evidence of inducible ischemia. 2. Excellent exercise capacity. 3. Chest pain noted throughout procedure. Clinical correlation recommended. [facility] HOSPITALBetsey
[2021-03-17] MEDS ORDERED: LEVOTHYROXINE 125 MCG TAB PO SCH (06:30)
== END 2021-03-15 13:59 | disposition home or self-care (01) ==
LOC: EC 15:25 → 6NMEDSUR 17:43
PROVIDERS: ADMIT Hospitalist; ATTEND Hospitalist
DX: R07.89 Other chest pain (principal); J44.9 Chronic obstructive pulmonary disease, unspecified; E03.9 Hypothyroidism, unspecified; K21.9 Gastro-esophageal reflux disease without esophagitis; D72.829 Elevated white blood cell count, unspecified; R91.8 Other nonspecific abnormal finding of lung field; M54.6 Pain in thoracic spine; M54.2 Cervicalgia; G89.29 Other chronic pain; M54.5 Low back pain; F41.9 Anxiety disorder, unspecified; Z20.822 Contact with and (suspected) exposure to COVID-19; Z79.890 Hormone replacement therapy; Z79.899 Other long term (current) drug therapy; Z88.2 Allergy status to sulfonamides; Z88.5 Allergy status to narcotic agent; Z90.710 Acquired absence of both cervix and uterus; Z98.890 Other specified postprocedural states; Z87.891 Personal history of nicotine dependence; Z90.49 Acquired absence of other specified parts of digestive tract; Z82.49 Family history of ischemic heart disease and other diseases of the circulatory system; Z82.5 Family history of asthma and other chronic lower respiratory diseases; Z80.49 Family history of malignant neoplasm of other genital organs; Z80.52 Family history of malignant neoplasm of bladder; Z80.0 Family history of malignant neoplasm of digestive organs
CPT/HCPCS: 96374; 99285; 36415; 93005; 93306; 93351; 85379; 80061; 80048; 84484; 85025; 85610; 85730; 87636; 71046; 71275; G0378 ×2; J1885; Q9967

== ENCOUNTER → 2021-06-28 | Outpatient (CLI) | payer MEDICARE ==
[2021-06-28 16:05] LABS: Basophils # (A) 0.04 X 10*3/uL (0.00-0.10); Basophils % (A) 0.5 %; Eosinophils % (A) 3.4 %; HCT 43.9 % (37.2-46.3); Lymphocytes # (A) 2.44 X 10*3/uL (0.90-5.00); Lymphocytes % (A) 27.5 %; MCH 28.8 pg (27.0-32.0); MCHC 31.9 g/dL (32.0-37.0); MCV 90.3 fL (80.0-97.0); Monocytes # (A) 0.82 X 10*3/uL (0.20-1.00); Monocytes % (A) 9.2 %; Neutrophils # (A) 5.23 X 10*3/uL (1.80-7.70); Neutrophils % (A) 58.9 %; Platelet Count 282 X 10*3/uL (140-440); RBC 4.86 X 10*6/uL (4.10-5.20); RDW 13.3 % (11.5-14.5); WBC 8.87 X 10*3/uL (4.50-10.00)
[2021-06-28 18:01] LABS: African American GFR (CKD) 80.5 (60.0-200.0); Albumin 4.2 g/dL (3.80-4.90); Anion Gap 7.6 mmol/L (4.00-12.00); BUN/Creat Ratio 17.78 Ratio (12.00-20.00); Calcium 9.3 mg/dL (8.7-10.3); Carbon Dioxide 27.4 mmol/L (21.6-31.8); Chol/HDL Ratio 2.91; Globulin 2.1 g/dL (1.6-3.3); LDL Cholesterol,Calculated 105.4 mg/dL (0.0-131.0); Non-African American GFR(CKD) 69.5 (60.0-200.0); Potassium 4.2 mmol/L (3.5-5.5); Total Bilirubin 0.6 mg/dL (0.3-1.2); Total Protein 6.3 g/dL (6.2-8.2); VLDL Calculation 28.6 mg/dL (5.00-40.00)
[2021-06-28 18:09] LABS: T4, Free (Free Thyroxine) 1.3 ng/dL (0.80-1.80)
[2021-06-28 20:35] LABS: Hemoglobin A1C 5.4 % (4.0-6.0)
== END | disposition home or self-care (01) ==
LOC: LABWHC1 07:40
DX: Z20.822 Contact with and (suspected) exposure to COVID-19 (principal); E03.9 Hypothyroidism, unspecified; G43.909 Migraine, unspecified, not intractable, without status migrainosus; R73.09 Other abnormal glucose
CPT/HCPCS: 36415; 80053; 80061; 82607; 83036; 84439; 84443; 85025; 86769

== ENCOUNTER → 2022-05-28 | Outpatient (CLI) | payer MEDICARE ==
[2022-05-28 11:38] VITALS: BP 116/70; PULSE 52; RESP 17; TEMP 97.9
--- NOTE | 2022-05-28 12:45 | P.HPOB ---
History of Present Illness H&P Date: 05/28/22 Chief Complaint: The patient is here for her routine gynecologic exam and ma mmogram. This is a 62-year-old with an LMP of 1990. The patient is status post FILOMENA/BSO for benign reasons. The patient previously used HRT subdermal pellets from a different doctor. She discontinued the pellets around September 2021. She does have more hot flashes, but this is tolerable. She states there are mental changes that seem to have gotten much worse including emotional changes, short temper, and less focus. She would like to go back on some form of ERT because of this. Review of Systems Weight has been stable. She denies respiratory or cardiac problems. GI: Occasional constipation, but this has been long-standing. Past Medical History Past Medical History: Thyroid Disorder Additional Past Medical History / Comment(s): Chronic back problems. Hypothyroidism. PAST AUTO [employer] HISTORY: She has no history of STDs. History of Any Multi-Drug Resistant Organisms: None Reported Past Surgical History: Back Surgery, Hysterectomy Additional Past Surgical History / Comment(s): FILOMENA/BSO in 1990. 4 back surgeries. Yeison fundoplication. Colonoscopy 2019(2nd, next after 5yrs). Additional Past Anesthesia/Blood Transfusion Reaction / Comment(s): patient states that her bladder stops working with anesthesia. Past Psychological History: Anxiety Smoking Status: Former smoker Past Alcohol Use History: Occasional (2 per week) Additional Past Alcohol Use History / Comment(s): Quit smoking in 2007. Past Drug Use History: None Reported Additional History: She has been since 1981 and is disabled. - Past Family History Mother Family Medical History: Cancer, COPD Additional Family Medical History / Comment(s): Gastric and uterine cancer. Father Family Medical History: Cancer Additional Family Medical History / Comment(s): Bladder cancer. Medications and Allergies Home Medications Medication Instructions Recorded Confirmed Type ALPRAZolam [Xanax] 1 mg PO DAILY 06/21/19 05/28/22 History L.acidoph,Paracasei, B.lactis 1 cap PO DAILY 08/24/19 05/28/22 History [Probiotic] Levothyroxine Sodium [Tirosint] 125 mcg PO SUMOTUWETHFR 08/24/19 05/28/22 History Cyanocobalamin (Vitamin B-12) 2,000 mcg PO DAILY 12/05/20 05/28/22 History [Vitamin B-12] Cholecalciferol [Vitamin D3 (25 25 mcg PO DAILY 03/14/21 05/28/22 History Mcg = 1000 Iu)] Levothyroxine Sodium [Tirosint] 250 mcg PO SA 03/14/21 05/28/22 History Magnesium Oxide [Mag-Ox] 400 mg PO DAILY 03/14/21 05/28/22 History Acetaminophen Tab [Tylenol] 650 mg PO Q4HR PRN tab 03/15/21 05/28/22 Rx Pedi Multivit No.205/Fluoride 1 tab PO DAILY 05/28/22 05/28/22 History [Crsue-Oaq-Ulma 1 mg Tab Chew] Allergies Allergy/AdvReac Type Severity Reaction Status Date / Time Sulfa (Sulfonamide Allergy Rash/Hives Verified 05/28/22 11:35 Antibiotics) codeine AdvReac MIGRAINE Verified 05/28/22 11:35 Exam Vital Signs Temp Pulse Resp BP Pulse Ox 05/28/22 11:35 97.9 F 52 L 17 116/70 96 Intake and Output 05/27/22 05/28/22 05/28/22 22:59 06:59 14:59 Other: Weight 78.471 kg Height 5 feet 3 inches, weight 173 pounds, BMI 30.6. This is a well-developed well-nourished white female who is alert and oriented times 3 in no acute distress. HEENT: Within normal limits. NECK: Supple without mass or thyromegaly. CHEST AND LUNGS: Clear to auscultation. HEART: Regular rate and rhythm. BREASTS: Are without mass or discharge. AXILLARY EXAM: Negative for adenopathy. BACK: Negative for CVA tenderness. ABDOMEN: Soft, nontender, without palpable masses. PELVIC EXAM: External genitalia appears normal with minimal atrophy. Vagina appears normal with minimal atrophy. There is no evidence of prolapse. Bimanual examination is negative for mass or tenderness. RECTAL EXAM: Rectovaginal exam is negative for mass or tenderness and is negative for occult blood. EXTREMITIES: Nontender. IMPRESSION: 1. 62-year-old menopausal female who is status post FILOMENA/BSO for benign reasons with normal gynecologic exam. 2. Worsening menopausal symptoms after she discontinued HRT in the form of subdermal pellets. Her symptoms include vasomotor symptoms, emotional changes, short temper, and less mental focus. PLAN: 1. Pap smears have been discontinued. 2. Self breast awareness was discussed with the patient. We have also discussed symptoms associated with inflammatory breast cancer. 3. Screening mammogram will be done today. 4. Osteoporosis prevention was discussed. I have stressed the importance of adequate calcium, vitamin D and regular exercise. Recommended amounts of calcium and vitamin D were also discussed. I have recommended bone density testing and the order slip will be given to the patient. 5. We have had a long discussion regarding ERT including possible risks such as increased risk for stroke or blood clots. After our long discussion, she would like to have a trial of an estrogen patch. Estradiol 0.05 mg patch to be changed 2 times weekly will be prescribed for the patient. The electronic prescription will be sent to [facility] pharmacy in [place]. She will try to wean sometime during the upcoming year. He was instructed to call she's having problems. 6. She has completed her Covid vaccination series and did receive a booster. 7. She was advised to return in one year for her annual well woman exam and as needed.
--- NOTE | 2022-05-29 11:25 | MM ---
Reason for Exam: Screening (asymptomatic). Last mammogram was performed 1 year(s) and 6 month(s) ago. Patient History: Menarche at age 15. First Full-Term at age 23. Left ovary removed at age 30. Right ovary removed at age 30. Hysterectomy at age 30. Postmenopausal. Currently using Estrogen, starting at age 30. Mother had breast cancer, age 50. Risk Values: Johanny 5 year model risk: 2.6%. NCI Lifetime model risk: 12.1%. Prior Study Comparison: 02/27/2018 Screening Mammogram, Unknown. 08/24/2019 Bilateral Screening Mammogram, [facility]. 12/05/2020 Bilateral Screening Mammogram, [facility]. Tissue Density: The breast tissue is heterogeneously dense. This may lower the sensitivity of mammography. Findings: Analyzed By CAD. There is no suspicious group of microcalcifications or new suspicious mass in either breast. Overall Assessment: Benign, BI-RAD 2 Management: Screening Mammogram of both breasts in 1 year. A clinical breast exam by your physician is recommended on an annual basis and results should be correlated with mammographic findings. Electronically signed and approved by: Nathaniel Bergman M.D. Radiologis
== END ==
LOC: WWCWWP 11:19
PROVIDERS: ATTEND Obstetrics & Gynecology
DX: Z01.419 Encounter for gynecological examination (general) (routine) without abnormal findings (principal); Z12.31 Encounter for screening mammogram for malignant neoplasm of breast; N95.1 Menopausal and female climacteric states; Z90.710 Acquired absence of both cervix and uterus; Z90.722 Acquired absence of ovaries, bilateral; E03.9 Hypothyroidism, unspecified; F41.9 Anxiety disorder, unspecified; Z79.890 Hormone replacement therapy; Z87.891 Personal history of nicotine dependence; Z88.2 Allergy status to sulfonamides; Z88.5 Allergy status to narcotic agent
CPT/HCPCS: 77063; 77067

== ENCOUNTER → 2022-06-14 | Outpatient (CLI) | payer MEDICARE ==
--- NOTE | 2022-06-14 13:19 | CT ---
EXAMINATION TYPE: CT chest w con CT DLP: 248.50 mGycm, Automated exposure control for dose reduction was used. DATE OF EXAM: 06/14/2022 12:46 PM COMPARISON: Chest radiograph 03/15/2021 CLINICAL INDICATION:Female, 62 years old with history of R91.1 LUNG NODULE, Lung nodule TECHNIQUE: Multiple axial images were obtained through the chest. Sagittal and coronal reformats were created for review. Contrast used:70 mL of Isovue 300 with IV Contrast, none. Oral contrast used: none. FINDINGS: LUNGS/ PLEURA: There are pulmonary nodules in the right lower lobe demonstrating somewhat tree-in-bud orientation along with the right middle lobe. These findings are new from prior on 03/15/2021. Previou s right apical pulmonary nodule is no longer definitively visualized. Mild centrilobular emphysema ch anges. No evidence focal consolidation, pneumothorax or pleural fusion. AIRWAY: Patent and unremarkable. HEART: Size within normal limits. MEDIASTINUM: No gross evidence of adenopathy. VASCULATURE: No aortic aneurysm. MUSCULOSKELETAL: No acute osseous abnormalities, mild multilevel disc degeneration changes are seen t hroughout the spine. SOFT TISSUES/LYMPH NODES: Unremarkable. LOWER NECK: No significant findings. UPPER ABDOMEN: Focal fatty infiltration of segment 4A. The gallbladder surgically absent. IMPRESSION: 1. Right apical pulmonary nodule seen on prior is no longer visualized. 2. Opacities within the right middle and right lower lobe could represent an infectious/ventricular p rocess. Short-term follow-up in 3 months is recommended.
== END | disposition home or self-care (01) ==
LOC: RADCTMAIN 12:13
PROVIDERS: ATTEND Internal Medicine
DX: R91.8 Other nonspecific abnormal finding of lung field (principal)
CPT/HCPCS: 71260; Q9967

== ENCOUNTER → 2022-09-09 | Outpatient (CLI) | payer MEDICARE ==
--- NOTE | 2022-09-10 11:22 | MR ---
EXAMINATION TYPE: MR lumbar spine wo/w con DATE OF EXAM: 09/09/2022 9:01 AM COMPARISON: 10/13/2020 MRI. CLINICAL INDICATION:Female, 62 years old with history of M48.061 SPINAL STENOSIS, LUMBAR REGION; TECHNIQUE: Multi planar, multi sequence imaging was performed utilizing: T1-weighted, T2-weighted, a nd turbo inversion recovery imaging of the lumbar spine. IV Contrast: 8 cc Gadavist FINDINGS: Alignment: The lumbar vertebral bodies have preserved heights and alignment. Cord: The conus medullaris and the distal spinal cord appear unremarkable with regards to their signa l intensity and morphology. Bones/Discs: No evidence of bony edema on inversion recovery sequences. Surgical changes L4 and L5. M ultilevel degenerative disc disease is noted and most pronounced at the L3-L4. Scattered Modic endpla te changes most pronounced at L4-L5. Probable L2 vertebral body with vertebral hemangioma. L1-L2: No significant disc pathology. Spinal canal is patent. The neural foramen are patent. L2-L3: No significant disc pathology. Spinal canal is patent. The neural foramen are patent. L3-L4: Disc bulging with facet joint arthropathy result in mild spinal canal stenosis. There is moder ate to severe bilateral neural foraminal stenosis L4-L5: Discectomy at this level. Spinal canal is patent. Facet joint arthropathy with mild neural for aminal stenosis. L5-S1: No significant disc pathology. Spinal canal is patent. Facet joint arthropathy with mild neura l foraminal stenosis. Other findings: Extra renal pelves bilaterally. IMPRESSION: 1. No definitive evidence of disc herniation or significant spinal canal stenosis. 2. Multilevel disc degeneration with associated osteoarthritic changes worse at L3-L4 with moderate to severe bilateral neural foraminal stenosis.
== END | disposition home or self-care (01) ==
LOC: RADMRIMAIN 08:13
DX: M48.061 Spinal stenosis, lumbar region without neurogenic claudication (principal); M51.36 Other intervertebral disc degeneration, lumbar region
CPT/HCPCS: 72158; A9585

== ENCOUNTER → 2022-09-23 | Outpatient (CLI) | payer MEDICARE ==
[2022-09-23 18:19] LABS: African American GFR (CKD) 84.6 (60.0-200.0); Blood Urea Nitrogen 15.6 mg/dL (9.0-27.0)
== END | disposition home or self-care (01) ==
LOC: LABWHC1 13:31
PROVIDERS: ATTEND Family Medicine
DX: Z01.812 Encounter for preprocedural laboratory examination (principal)
CPT/HCPCS: 36415; 82565; 84520

== ENCOUNTER → 2022-10-07 | Outpatient (CLI) | payer MEDICARE ==
[2022-10-07 14:40] LABS: ALT 19 U/L (8-44); AST 25 U/L (13-35); African American GFR (CKD) 80.2 (60.0-200.0); Albumin/Globulin Ratio 1.74 (1.60-3.17); Alkaline Phosphatase 50 U/L (41-126); BUN/Creat Ratio 11.08 Ratio (12.00-20.00); Calcium 9.1 mg/dL (8.7-10.3); Carbon Dioxide 24.2 mmol/L (20.0-27.5); Chloride 104 mmol/L (96-109); Chol/HDL Ratio 2.77 Ratio; Globulin 2.3 g/dL (1.6-3.3); Glucose 98 mg/dL (70-110); LDL Cholesterol,Calculated 96.5 mg/dL (0.0-131.0); Non-African American GFR(CKD) 69.2 (60.0-200.0); Potassium 4.2 mmol/L (3.5-5.5); Sodium 138 mmol/L (135-145); Total Protein 6.3 g/dL (6.2-8.2)
[2022-10-07 16:08] LABS: Basophils # (A) 0.05 X 10*3/uL (0.00-0.10); Basophils % (A) 0.5 %; Eosinophils # (A) 0.26 X 10*3/uL (0.04-0.35); Eosinophils % (A) 2.7 %; HGB 14.4 g/dL (12.0-15.0); Immature Grans, Automated 0.3 %; Lymphocytes # (A) 1.99 X 10*3/uL (0.90-5.00); Lymphocytes % (A) 20.8 %; MCH 29.3 pg (27.0-32.0); MCHC 32.7 g/dL (32.0-37.0); MCV 89.6 fL (80.0-97.0); Mean Platelet Volume 10.5 fL (9.5-12.2); Monocytes # (A) 0.88 X 10*3/uL (0.20-1.00); Monocytes % (A) 9.2 %; NRBC Per 100 WBC 0 /100 WBCS (0.0-0.0); Neutrophils # (A) 6.35 X 10*3/uL (1.80-7.70); Neutrophils % (A) 66.5 %; Platelet Count 317 X 10*3/uL (140-440); RBC 4.91 X 10*6/uL (4.10-5.20); RDW 13.2 % (11.5-14.5); WBC 9.56 X 10*3/uL (4.50-10.00)
== END | disposition home or self-care (01) ==
LOC: LABWHC1 07:49
DX: Z20.828 Contact with and (suspected) exposure to other viral communicable diseases (principal); E03.9 Hypothyroidism, unspecified; E55.9 Vitamin D deficiency, unspecified; E53.8 Deficiency of other specified B group vitamins; E78.00 Pure hypercholesterolemia, unspecified
CPT/HCPCS: 36415; 80053; 80061; 84439; 84443; 85025

== ENCOUNTER → 2023-03-21 | Outpatient (CLI) | payer MEDICARE ==
--- NOTE | 2023-03-21 10:53 | CT ---
EXAMINATION TYPE: CT chest w con DATE OF EXAM: 03/21/2023 COMPARISON: 06/14/2022 HISTORY: Lung nodules CT DLP: 229.2 mGycm Automated exposure control for dose reduction was used. TECHNIQUE: CT scan of the chest is performed with IV Contrast, patient injected with 100 mL of Isovue 300. MIP Images are created on CT scanner and reviewed. 3D reconstructed images are created on an independent workstation and reviewed. FINDINGS: LUNGS: The lungs are grossly clear, there is no concerning parenchymal mass or nodule identified. T here is no pleural effusion or pneumothorax seen. The tracheobronchial tree is patent. Near-complete resolution of previously described tree-in-bud nodularity. Minimal residual 1 mm nodularity seen on axial image 32 and 2 mm nodule axial image 31. Findings are likely benign. Mild emphysematous changes noted. MEDIASTINUM: There are no greater than 1 cm hilar or mediastinal lymph nodes. No pericardial effusi on is seen. Aorta of normal caliber. Heart size is mildly enlarged. OTHER: Surgical clips in the gallbladder fossa. Hypertrophic and degenerative changes of the spine. Low-density lesion 1.5 cm nodularity left lobe of the liver most likely related to small hepatic cyst stable from prior exam. IMPRESSION: 1. Near complete resolution of previously described nodularity with minimal 1 to 2 mm pulmonary nodul e persisting which have a benign appearance. Annual screening in 12 months could be obtained for furt her follow-up as clinically warranted.
== END | disposition home or self-care (01) ==
LOC: RADCTMAIN 09:39
PROVIDERS: ATTEND Internal Medicine
DX: R91.1 Solitary pulmonary nodule (principal)
CPT/HCPCS: 71260; Q9967

== ENCOUNTER → 2023-04-24 | Outpatient (CLI) | payer MEDICARE ==
[2023-04-24 11:03] LABS: Basophils # (A) 0.05 X 10*3/uL (0.00-0.10); Basophils % (A) 0.6 %; Eosinophils # (A) 0.18 X 10*3/uL (0.04-0.35); Eosinophils % (A) 2.2 %; HCT 42.4 % (37.2-46.3); HGB 13.6 d/dL (12.0-15.0); Lymphocytes # (A) 1.79 X 10*3/uL (0.90-5.00); Lymphocytes % (A) 22.3 %; MCH 28.6 pg (27.0-32.0); MCHC 32.1 d/dL (32.0-37.0); MCV 89.3 FL (80.0-97.0); Mean Platelet Volume 10.4 FL (9.5-12.2); Monocytes # (A) 0.79 X 10*3/uL (0.20-1.00); Monocytes % (A) 9.9 %; NRBC Per 100 WBC 0 X 10*3/uL (0.00-0.01); Neutrophils # (A) 5.18 X 10*3/uL (1.80-7.70); Neutrophils % (A) 64.6 %; Platelet Count 290 X 10*3/uL (140-440); RBC 4.75 X 10*6/uL (4.10-5.20); RDW 13.2 % (11.5-14.5); WBC 8.02 X 10*3/uL (4.50-10.00)
[2023-04-24 11:49] LABS: ALT 17 U/L (8-44); AST 21 U/L (13-35); Alkaline Phosphatase 55 U/L (41-126); BUN/Creat Ratio 17.75 Ratio (12.00-20.00); Blood Urea Nitrogen 14.2 mg/dL (9.0-27.0); Calcium 9.1 mg/dL (8.7-10.3); Chloride 106 mmol/L (96-109); Glucose 100 mg/dL (70-110); LDL Cholesterol,Calculated 112.1 mg/dL (0.0-131.0); Potassium 4.5 mmol/L (3.5-5.5); Sodium 139 mmol/L (135-145); T4, Free (Free Thyroxine) 1.92 ng/dL (0.80-1.80); Total Bilirubin 0.3 mg/dL (0.3-1.2)
== END | disposition home or self-care (01) ==
LOC: LABWHC1 07:13
DX: E03.9 Hypothyroidism, unspecified (principal); E78.00 Pure hypercholesterolemia, unspecified
CPT/HCPCS: 36415; 80053; 80061; 84439; 84443; 85025

== ENCOUNTER → 2023-06-23 | Outpatient (CLI) | payer MEDICARE ==
[2023-06-23 19:17] LABS: Basophils # (A) 0.03 X 10*3/uL (0.00-0.10); Basophils % (A) 0.3 %; Eosinophils # (A) 0.11 X 10*3/uL (0.04-0.35); Eosinophils % (A) 1.2 %; HCT 43.4 % (37.2-46.3); Lymphocytes # (A) 1.83 X 10*3/uL (0.90-5.00); Lymphocytes % (A) 19.4 %; MCH 28.9 pg (27.0-32.0); MCHC 32.3 d/dL (32.0-37.0); MCV 89.7 FL (80.0-97.0); Mean Platelet Volume 10.5 FL (9.5-12.2); Monocytes # (A) 0.81 X 10*3/uL (0.20-1.00); Monocytes % (A) 8.6 %; NRBC Per 100 WBC 0 X 10*3/uL (0.00-0.01); Neutrophils # (A) 6.61 X 10*3/uL (1.80-7.70); Neutrophils % (A) 70.3 %; Platelet Count 275 X 10*3/uL (140-440); RBC 4.84 X 10*6/uL (4.10-5.20); RDW 12.4 % (11.5-14.5); WBC 9.41 X 10*3/uL (4.50-10.00)
[2023-06-23 20:09] LABS: Blood Urea Nitrogen 12.4 mg/dL (9.0-27.0); Carbon Dioxide 25.7 mmol/L (21.6-31.8); Chloride 103 mmol/L (96-109); Glucose 93 mg/dL (70-110); Potassium 4.7 mmol/L (3.5-5.5); Sodium 138 mmol/L (135-145)
== END | disposition home or self-care (01) ==
LOC: LABPAT 12:17
PROVIDERS: ATTEND Obstetrics & Gynecology
DX: Z01.812 Encounter for preprocedural laboratory examination (principal); N81.6 Rectocele; I45.19 Other right bundle-branch block; R94.31 Abnormal electrocardiogram [ECG] [EKG]
CPT/HCPCS: 80051; 82565; 82947; 84520; 85025; 87086; 93005

== ENCOUNTER 2023-07-01 08:26 | Day surgery (SDC) | payer MEDICARE ==
[2023-07-01] MEDS ORDERED: LACTATED RINGERS 1,000 ML IV SCH ×2 (09:01→11:15)
[2023-07-01] MEDS ORDERED: DEXAMETHASONE SOD PHOSPHATE 4 MG/ML 1 ML VIAL IV ONE (09:01)
[2023-07-01] MEDS ORDERED: HYDROmorphone 0.5 MG/0.5 ML SYRINGE IVP PRN (09:01)
[2023-07-01] MEDS ORDERED: ONDANSETRON 4 MG/2 ML VIAL IVP ONE (09:01)
[2023-07-01] MEDS ORDERED: LACTATED RINGERS 1,000 ML IV ONE (09:02)
[2023-07-01 09:03] VITALS: RESP 16
[2023-07-01] MEDS ORDERED: MIDAZOLAM 2 MG/2 ML VIAL IVP ONE (09:49)
[2023-07-01] MEDS ORDERED: LIDOCAINE 2% INJ 20 MG/ML (2 ML VIAL) ONE (09:53)
[2023-07-01] MEDS ORDERED: KETOROLAC 15 MG/ML 1 ML VIAL ONE (09:53)
[2023-07-01] MEDS ORDERED: SUCCINYLCHOLINE CHLORIDE 200 MG/10 ML VIAL IV ONE (09:53)
[2023-07-01] MEDS ORDERED: MIDAZOLAM 2 MG/2 ML VIAL ONE (09:53)
[2023-07-01] MEDS ORDERED: fentaNYL (PF) 50 MCG/ML 2 ML AMP ONE (09:53)
[2023-07-01] MEDS ORDERED: PROPOFOL 10 MG/ML 20 ML VIAL IV ONE (09:53)
[2023-07-01] MEDS ORDERED: diphenhydrAMINE 50 MG/ML 1 ML VIAL ONE (09:53)
[2023-07-01] MEDS ORDERED: VASOPRESSIN 20 UNIT/ML 1 ML VIAL SQ ONE (10:22)
[2023-07-01] MEDS ORDERED: BACITRACIN ZINC 500 UNIT/GM OINT 28.4 GM TUBE TOPICAL ONE (10:29)
[2023-07-01] MEDS ORDERED: IBUPROFEN 600 MG TAB PO PRN (11:03)
[2023-07-01] MEDS ORDERED: METOCLOPRAMIDE 5 MG/ML 2 ML VIAL IVP PRN (11:03)
[2023-07-01] MEDS ORDERED: KETOROLAC 15 MG/ML 1 ML VIAL IVP PRN (11:03)
[2023-07-01] MEDS ORDERED: SIMETHICONE 80 MG CHEWABLE PO PRN (11:03)
[2023-07-01] MEDS ORDERED: ONDANSETRON 4 MG/2 ML VIAL IVP PRN (11:03)
--- NOTE | 2023-07-01 11:10 | P.OP ---
Date of Procedure: 07/01/23 Preoperative Diagnosis: #1. Symptomatic grade 3 rectocele Postoperative Diagnosis: Same Procedure(s) Performed: #1. Posterior colporrhaphy Anesthesia: DARBY Surgeon: Catalino Segundo Peanut Shaker #1: Josette Delaney Estimated Blood Loss (ml): 20 IV fluids (ml): 600 Urine output (ml): 130 Pathology: none sent Condition: stable Disposition: PACU Operative Findings: Preoperative pelvic examination under anesthesia demonstrated the findings as noted in the diagnoses, a grade 3 rectocele was present with the apex and bladder being relatively well supported. Following closure, the repair appeared to be excellent. Description of Procedure: The patient was prepped and draped in usual fashion after general endotracheal anesthesia was administered by the anesthesiologist. The bladder was drained of approximately 130 mL of clear romi urine. Allis clamps were placed at the margins of the hymeneal ring and a triangular shaped wedge of skin taken on the perineum above the perineal body and the discarded. The rectovaginal mucosa was infused with diluted vasopressin solution from the opening of the vagina to the apex of the repair. It was undermined and divided in the midline using the Metzenbaum scissors along the entire length with Allis clamps placed at intervals along each side. The rectovaginal mucosa was sharply and bluntly dissected from the underlying tissues bilaterally. After adequate reflection had been carried out, serial Leslie plication stitches were placed from the apex of the repair to the vaginal opening using 2-0 PDS. The intervening redundant v aginal mucosa was the removed bilaterally with Metzenbaum scissors and discarded. The remaining vaginal mucosal opening was closed with a running stitch of 2-0 Vicryl from the apex to the vagina at which time perineoplasty was carried out continuously in standard fashion. A Carson catheter was placed and clear urine noted. The vagina was then packed with one-inch iodophor gauze covered with bacitracin ointment. Estimated blood loss for the case was approximately 20 mL. There were no complications. All sponge, instrument, and needle counts were correct. The patient tolerated the procedure well and proceeded to the recovery room in stable condition.
[2023-07-01] MEDS ORDERED: droPERidol 5 MG/2 ML VIAL IVP ONE (11:30)
[2023-07-01] MEDS ORDERED: SENNOSIDES-DOCUSATE SODIUM 1 EACH TAB PO SCH (21:00)
[2023-07-01] MEDS ORDERED: ALPRAZolam 1 MG TAB PO PRN (21:35)
[2023-07-01] MEDS ORDERED: ALPRAZolam 0.5 MG TAB PO PRN (21:59)
[2023-07-01] MEDS: diphenhydrAMINE 50 MG/ML 1 ML VIAL IVP PRN (22:18)
[2023-07-02] MEDS: diphenhydrAMINE 50 MG/ML 1 ML VIAL IVP PRN (06:22)
[2023-07-02 06:38] LABS: Basophils % (A) 0 %; Eosinophils % (A) 0 %; HCT 36.4 % (34.0-46.0); HGB 11.9 gm/dL (11.4-16.0); Lymphocytes # (A) 1.8 k/uL (1.0-4.8); Lymphocytes % (A) 14 %; MCH 30.2 pg (25.0-35.0); MCHC 32.8 g/dL (31.0-37.0); Mean Platelet Volume 8.4; Monocytes # (A) 0.8 k/uL (0-1.0); Monocytes % (A) 6 %; Neutrophils # (A) 9.9 k/uL (1.3-7.7); Neutrophils % (A) 78 %; Platelet Count 222 k/uL (150-450); RBC 3.96 m/uL (3.80-5.40); RDW 12.7 % (11.5-15.5); WBC 12.7 k/uL (3.8-10.6)
--- NOTE | 2023-07-02 06:38 | P.PN ---
Progress Note - Text Progress Note Date: 07/02/23 Ms. Stahl was seen and evaluated at the bedside. Status post postoperative day 1 for posterior colporrhaphy. She received intrathecal , 300 g of morphine for postoperative pain control. Today patient is comfortable sitting in her bed. Today patient rated her pain level 1 out of 10 in severity. Denied any fever, drowsiness, confusion. Denied any weakness, tingling sensation in her lower extremities. Denied any bowel or bladder problems. Moving all extremities with out any difficulty, and able to walk without any difficulties. She is complaining of mild itching, and nausea sometimes. As per patient which is bearable. Vitals: Hemodynamically stable Continue oral pain medication as per primary team. No complications related to anesthesia.
[2023-07-02 08:02] VITALS: BP 121/79; PULSE 74; TEMP 98.7
--- NOTE | 2023-07-02 08:34 | P.DS ---
Providers Expected date of discharge: 07/02/23 Attending physician: Catalino Segundo Primary care physician: Jj Moya MD - Discharge Diagnosis(es) (1) Rectocele Current Visit: Yes Status: Acute Hospital Course: The patient is a 63-year-old patient who presented to the office with complaints of significant vaginal bulging and was ultimately found to have a grade 3-3+ rectocele present. She was counseled regarding options and agreed to go the operating room where she underwent posterior colporrhaphy and uncomplicated fashion yesterday. Her postoperative course has been uncomplicated aside from significant itching almost certainly due to the Duramorph that she was given for pain control. She additionally had a period of time last evening at which time she had moderate nausea which has resolved. She is otherwise tolerating regular diet and able to void without difficulty. She was deemed stable for discharge on postoperative day #1 was discharged home to follow-up in the office in 2 weeks for a recheck and 6 weeks routinely. Discharge instructions included calling for any significantly increased bleeding, fever, pain, difficulty with the voiding either urine or stool, or anything also concerned her. She was additionally instructed to have nothing in the vagina for at least 6 weeks time. She was lastly and perhaps most importantly instructed to do no heavy lifting over the next 6 weeks. She understood her instructions and agrees follow up as noted above. Discharge medications included any home medications as well as [id number] analgesic pain medications. Discharge hemoglobin and hematocrit were 11.9 and 36.4 respectively. Procedures: #1. Posterior colporrhaphy Patient Condition at Discharge: Stable Plan - Discharge Summary Discharge Rx Participant: No New Discharge Prescriptions: No Action ALPRAZolam [Xanax] 1 mg PO HS Cyanocobalamin (Vitamin B-12) [Vitamin B-12] 2,000 mcg PO DAILY Acetaminophen Tab [Tylenol] 650 mg PO Q4HR PRN tab PRN Reason: Fever And/ Or Pain Calcium Carbonate [Calcium] 600 mg PO DAILY RABEprazole SODIUM [Aciphex] 20 mg PO QAM Magnesium Oxide [Mag-Ox] 400 mg PO DAILY Cholecalciferol [Vitamin D3 (25 Mcg = 1000 Iu)] 25 mcg PO DAILY RABEprazole SODIUM [Aciphex] 20 mg PO DAILY DULoxetine HCL [Cymbalta] 30 mg PO QAM Levothyroxine Sodium [Tirosint] 150 mg PO QAM Hrt Pellets 1 dose SQ Q90D Discharge Medication List ALPRAZolam [Xanax] 1 mg PO HS 06/21/19 [History] Cyanocobalamin (Vitamin B-12) [Vitamin B-12] 2,000 mcg PO DAILY 12/05/20 [History] Cholecalciferol [Vitamin D3 (25 Mcg = 1000 Iu)] 25 mcg PO DAILY 03/14/21 [History] Magnesium Oxide [Mag-Ox] 400 mg PO DAILY 03/14/21 [History] Acetaminophen Tab [Tylenol] 650 mg PO Q4HR PRN tab 03/15/21 [Rx] Calcium Carbonate [Calcium] 600 mg PO DAILY 06/03/23 [History] RABEprazole SODIUM [Aciphex] 20 mg PO DAILY 06/03/23 [History] DULoxetine HCL [Cymbalta] 30 mg PO QAM 06/23/23 [History] Hrt Pellets 1 dose SQ Q90D 06/23/23 [History] Levothyroxine Sodium [Tirosint] 150 mg PO QAM 06/23/23 [History] RABEprazole SODIUM [Aciphex] 20 mg PO QAM 06/23/23 [History] Follow up Appointment(s)/Referral(s): Catalino Segundo MD [STAFF PHYSICIAN] - 2 Weeks Discharge Disposition: HOME SELF-CARE
[2023-07-02] MEDS ORDERED: ACETAMINOPHEN TAB 325 MG TAB PO PRN (11:05)
--- NOTE | 2023-07-02 12:02 | P.ANPRN ---
Procedure Note - Anesthesia - Epidural/Spinal Spinal Time Out Performed: Yes Date of Procedure: 07/01/23 Procedure Start Time: 09:48 Procedure Stop Time: 09:51 Location of Patient: PreOp Indication: Acute Post-Operative Pain, Requested by Surgeon Sedation Type: Sedate with meaningful contact maintained Preparation: Sterile Prep Position: Sitting Needle Guage: 25 Blood Aspirated: No Pain Paresthesia on Injection Noted: No Events: Uneventful and Well Tolerated (duramoroh 300 mics plus fentanyl 25 mics)
== END 2023-07-02 09:57 | disposition home or self-care (01) ==
LOC: OR 08:26 → 4FBP 10:51 → OR 07-02 09:57
PROVIDERS: ATTEND Obstetrics & Gynecology
DX: N81.6 Rectocele (principal); G89.18 Other acute postprocedural pain; Z79.899 Other long term (current) drug therapy; Z98.890 Other specified postprocedural states
CPT/HCPCS: 86900; 86901; 85025; 86850; J2250; J1200 ×2; J1100; J0690; J2405; J1885; J1790

== ENCOUNTER → 2023-07-24 | Outpatient (CLI) | payer MEDICARE ==
[2023-07-24 15:41] LABS: ALT 20 U/L (8-44); AST 26 U/L (13-35); Albumin 4.2 d/dL (3.8-4.9); Alkaline Phosphatase 62 U/L (41-126); BUN/Creat Ratio 16.12 Ratio (12.00-20.00); Blood Urea Nitrogen 12.9 mg/dL (9.0-27.0); Calcium 9.2 mg/dL (8.7-10.3); Carbon Dioxide 25.7 mmol/L (21.6-31.8); Chloride 102 mmol/L (96-109); Globulin 2.1 d/dL (1.6-3.3); Glucose 96 mg/dL (70-110); LDL Cholesterol,Calculated 102.1 mg/dL (0.0-131.0); Potassium 4.2 mmol/L (3.5-5.5); Sodium 138 mmol/L (135-145); T4, Free (Free Thyroxine) 1.51 ng/dL (0.80-1.80); Total Bilirubin 0.3 mg/dL (0.3-1.2); Total Protein 6.3 d/dL (6.2-8.2)
[2023-07-24 16:14] LABS: Basophils # (A) 0.05 X 10*3/uL (0.00-0.10); Basophils % (A) 0.6 %; Eosinophils # (A) 0.24 X 10*3/uL (0.04-0.35); Eosinophils % (A) 2.7 %; HCT 40.3 % (37.2-46.3); HGB 12.9 d/dL (12.0-15.0); Lymphocytes # (A) 1.56 X 10*3/uL (0.90-5.00); Lymphocytes % (A) 17.5 %; MCH 28.9 pg (27.0-32.0); MCV 90.2 FL (80.0-97.0); Mean Platelet Volume 10.2 FL (9.5-12.2); Monocytes # (A) 0.66 X 10*3/uL (0.20-1.00); Monocytes % (A) 7.4 %; NRBC Per 100 WBC 0 X 10*3/uL (0.00-0.01); Neutrophils # (A) 6.35 X 10*3/uL (1.80-7.70); Neutrophils % (A) 71.4 %; Platelet Count 341 X 10*3/uL (140-440); RBC 4.47 X 10*6/uL (4.10-5.20); RDW 13.1 % (11.5-14.5)
== END | disposition home or self-care (01) ==
LOC: LABWHC1 08:07
DX: E03.9 Hypothyroidism, unspecified (principal); E55.9 Vitamin D deficiency, unspecified; E53.8 Deficiency of other specified B group vitamins; E78.00 Pure hypercholesterolemia, unspecified
CPT/HCPCS: 36415; 80053; 80061; 82306; 82607; 84439; 84443; 85025

== ENCOUNTER → 2023-09-12 | Outpatient (CLI) | payer MEDICARE ==
--- NOTE | 2023-09-12 15:22 | US ---
EXAMINATION TYPE: US kidneys/renal and bladder DATE OF EXAM: 09/12/2023 COMPARISON: NONE CLINICAL INDICATION: Female, 63 years old with history of N23 UNSPECIFIED RENAL COLIC, R10.9; Unable to fully empty bladder x 1 year EXAM MEASUREMENTS: Right Kidney: 10.7 x 4.5 x 4.5 cm Left Kidney: 10.8 x 5.1 x 4.7 cm Post Void Residual Volume: 7.5 mL Right Kidney: 10.7 x 4.5 x 4.5 cm ? duplicated collecting system. Left Kidney: 10.8 x 5.1 x 4.7 cm Post Void Residual Volume: 7.5 mL Bladder: WNL Bilateral Jets seen: YES IMPRESSION: 1. No suspicious acute ultrasound abnormality bilateral kidneys.
== END | disposition home or self-care (01) ==
LOC: RADUSWWP 14:15
DX: N23 Unspecified renal colic (principal)
CPT/HCPCS: 76770

== ENCOUNTER → 2024-03-12 | Outpatient (CLI) | payer MEDICARE ==
[2024-03-12 10:45] LABS: ALT 21 U/L (8-44); AST 27 U/L (13-35); Albumin 4.5 g/dL (3.8-4.9); Albumin/Globulin Ratio 1.96 Ratio (1.60-3.17); Alkaline Phosphatase 58 U/L (41-126); Blood Urea Nitrogen 13.3 mg/dL (9.0-27.0); Calcium 9.7 mg/dL (8.7-10.3); Carbon Dioxide 25.3 mmol/L (21.6-31.8); Chloride 103 mmol/L (96-109); Chol/HDL Ratio 2.66 Ratio; Globulin 2.3 g/dL (1.6-3.3); Glucose 115 mg/dL (70-110); LDL Cholesterol,Calculated 124.3 mg/dL (0.0-131.0); Potassium 4.3 mmol/L (3.5-5.5); Sodium 138 mmol/L (135-145); T4, Free (Free Thyroxine) 1.22 ng/dL (0.80-1.80); Total Bilirubin 0.3 mg/dL (0.3-1.2); Total Protein 6.8 g/dL (6.2-8.2)
[2024-03-12 14:30] LABS: Basophils # (A) 0.03 X 10*3/uL (0.00-0.10); Basophils % (A) 0.2 %; Eosinophils # (A) 0.01 X 10*3/uL (0.04-0.35); Eosinophils % (A) 0.1 %; HCT 43.2 % (37.2-46.3); Lymphocytes # (A) 1.57 X 10*3/uL (0.90-5.00); Lymphocytes % (A) 11.5 %; MCH 28.3 pg (27.0-32.0); MCHC 32.4 g/dL (32.0-37.0); MCV 87.4 FL (80.0-97.0); Mean Platelet Volume 10.4 FL (9.5-12.2); Monocytes # (A) 0.73 X 10*3/uL (0.20-1.00); Monocytes % (A) 5.3 %; NRBC Per 100 WBC 0 X 10*3/uL (0.00-0.01); Neutrophils # (A) 11.26 X 10*3/uL (1.80-7.70); Neutrophils % (A) 82.5 %; Platelet Count 330 X 10*3/uL (140-440); RBC 4.94 X 10*6/uL (4.10-5.20); WBC 13.66 X 10*3/uL (4.50-10.00)
== END | disposition home or self-care (01) ==
LOC: LABWHC1 07:29
DX: E03.9 Hypothyroidism, unspecified (principal); D64.9 Anemia, unspecified; F32.9 Major depressive disorder, single episode, unspecified; F41.9 Anxiety disorder, unspecified; E53.8 Deficiency of other specified B group vitamins
CPT/HCPCS: 36415; 80053; 80061; 82607; 84439; 84443; 85025

== ENCOUNTER → 2024-06-08 | Outpatient (CLI) | payer MEDICARE ==
[2024-06-08 11:41] VITALS: PULSE 93; RESP 16; TEMP 97.9
[2024-06-08 12:22] VITALS: BP 118/79
--- NOTE | 2024-06-08 12:28 | P.HPOB ---
History of Present Illness H&P Date: 06/08/24 Chief Complaint: The patient is here for her routine gynecologic exam and ma mmogram. This is a 64-year-old G3, P3 with an LMP of 1990. The patient underwent a rectocele repair in June 2023 and this was done by Dr. Segundo. She later started having some bladder and pelvic discomfort and Dr. Segundo told her the rectocele seems to be doing fine, but she was told she has a cystocele. She was prescribed some vaginal estrogen tablets which she used twice a week and this seemed to improve her discomfort. She has not been using them for the past several weeks. She also was previously having HRT with pellets from a different doctor in [place]. She has not gotten them since January 2024. She is status post FILOMENA/BSO years ago for benign reasons. Review of Systems The patient has gained 7 pounds over the last year. She denies respiratory, cardiac, or G.I. problems. Past Medical History Past Medical History: Osteoarthritis (OA), Thyroid Disorder Additional Past Medical History / Comment(s): Chronic back problems. Hypothyroidism. PAST TECHNICAL AID HISTORY: She has no history of STDs. History of Any Multi-Drug Resistant Organisms: None Reported Past Surgical History: Back Surgery, Cholecystectomy, Hysterectomy, Tubal Ligation Additional Past Surgical History / Comment(s): FILOMENA/BSO in 1990. 4 back surgeries. Yeison fundoplication. Colonoscopy 2019(2nd, next after 5yrs). Rectocele repair in 2022. Additional Past Anesthesia/Blood Transfusion Reaction / Comment(s): patient states that her bladder stops working with anesthesia. Past Psychological History: Anxiety Smoking Status: Former smoker Past Alcohol Use History: Occasional (0-2 drinks per month.) Additional Past Alcohol Use History / Comment(s): Quit smoking in 2007. Past Drug Use History: None Reported Additional History: She has been since 1981 and is disabled. She is sexually active. - Past Family History Mother Family Medical History: Cancer, COPD Additional Family Medical History / Comment(s): Gastric and uterine cancer. Father Family Medical History: Cancer Additional Family Medical History / Comment(s): Bladder cancer. Medications and Allergies Home Medications Medication Instructions Recorded Confirmed Type ALPRAZolam [Xanax] 1 mg PO HS 06/21/19 06/08/24 History Cyanocobalamin (Vitamin B-12) 2,000 mcg PO DAILY 12/05/20 07/01/23 History [Vitamin B-12] Cholecalciferol [Vitamin D3 (25 25 mcg PO DAILY 03/14/21 07/01/23 History Mcg = 1000 Iu)] Magnesium Oxide [Mag-Ox] 400 mg PO DAILY 03/14/21 06/08/24 History Acetaminophen Tab [Tylenol] 650 mg PO Q4HR PRN tab 03/15/21 06/08/24 Rx Calcium Carbonate [Calcium] 600 mg PO DAILY 06/03/23 07/01/23 History Hrt Pellets 1 dose SQ Q90D 06/23/23 07/01/23 History Allergies Allergy/AdvReac Type Severity Reaction Status Date / Time Sulfa (Sulfonamide Allergy Rash/Hives Verified 07/01/23 09:04 Antibiotics) codeine AdvReac MIGRAINE Verified 07/01/23 09:04 Exam Vital Signs Temp Pulse Resp BP Pulse Ox 06/08/24 11:37 97.9 F 93 16 179/83 97 Intake and Output 06/07/24 06/08/24 06/08/24 22:59 06:59 14:59 Other: Weight 81.193 kg The patient's blood pressure is 118/78. The blood pressure above was entered incorrectly. Height 5 feet 3 inches, weight 179 pounds, BMI 31.7. This is a well-developed well-nourished white female who is alert and oriented times 3 in no acute distress. HEENT: Strabismus is noted. HEENT is otherwise within normal limits. NECK: Supple without mass or thyromegaly. CHEST AND LUNGS: Clear to auscultation. HEART: Regular rate with infrequent atopic beats BREASTS: Are without mass or discharge. AXILLARY EXAM: Negative for adenopathy. BACK: Negative for CVA tenderness. ABDOMEN: Soft, nontender, without palpable masses. PELVIC EXAM: External genitalia appears normal with mild atrophy. Vagina appe ars normal with mild atrophy. There is a grade 1 cystocele at rest. There is no significant rectocele noted at this time. With cough and Valsalva the cystocele increases to a grade 2 cystocele. Bimanual examination is negative for mass or tenderness. RECTAL EXAM: Rectovaginal exam is negative for mass or tenderness and is negative for occult blood. EXTREMITIES: Nontender. IMPRESSION: 1. 64-year-old menopausal female status post FILOMENA/BSO for benign reasons and later rectocele repair, with a small grade 1-2 cystocele noted on exam today. 2. Intermittent atopic heartbeats,, possible PVCs or PACs. 3. History of osteopenia. 4. History of ERT with pellets last inserted in January 2024 by a different physician. Also history of vaginal estrogen use as prescribed by Dr. Segundo. PLAN: 1. Pap smears have been discontinued 2. Self breast awareness was discussed with the patient. We have also discussed symptoms associated with inflammatory breast cancer. 3. Screening mammogram will be done today. 4. Conservative management for the small cystocele. I have recommended that she avoid holding urine longer than necessary. 5. Osteoporosis prevention was discussed. I have stressed the importance of adequate calcium, vitamin D and regular exercise. Recommended amounts of calcium and vitamin D were also discussed. We will plan on repeating the bone density test in 1 year. 6. She believes she is due for colonoscopy and will try to have this arranged through her PCP. 7. She will call if she needs refills on her vaginal estrogen tablets. 8. She was advised to return in one year for her annual well woman exam and as needed.
--- NOTE | 2024-06-10 12:06 | MM ---
Reason for Exam: Screening (asymptomatic). Last screening mammogram was performed 12 month(s) ago. Patient History: Menarche at age 15. First Full-Term at age 23. Left ovary removed at age 30. Right ovary removed at age 30. Hysterectomy at age 30. Postmenopausal. Currently using Estrogen, starting at age 30. Mother had breast cancer, age 50. Risk Values: Johanny 5 year model risk: 2.7%. NCI Lifetime model risk: 11.4%. Prior Study Comparison: 12/05/2020 Bilateral Screening Mammogram, [facility]. 05/28/2022 Bilateral MG 3D screening mammo w/cad, [facility]. 06/03/2023 Bilateral MG 3D screening mammo w/cad, [facility]. Tissue Density: The breasts are heterogeneously dense, which may obscure small masses. Findings: Analyzed By CAD. There is no suspicious group of microcalcifications or new suspicious mass in either breast. Overall Assessment: Negative, BI-RAD 1 Management: Screening Mammogram of both breasts in 1 year. . Patient should continue monthly self-breast exams. A clinical breast exam by your physician is recommended on an annual basis. This exam should not preclude additional follow-up of suspicious palpable abnormalities. Note on Johanny scores and lifetime risk: 1. A Johanny score greater than 3% is considered moderate risk. If this is the case, consider specialist referral to assess eligibility for a risk reducing agent. 2. If overall lifetime risk for the development of breast cancer is 20% or higher, the patient may qualify for future screening with alternating mammogram and breast MRI. Electronically signed and approved by: Carl Stewart M.D. Radiologis
== END ==
LOC: WWCWWP 11:16
PROVIDERS: ATTEND Obstetrics & Gynecology
DX: Z12.31 Encounter for screening mammogram for malignant neoplasm of breast (principal); M85.80 Other specified disorders of bone density and structure, unspecified site; R10.2 Pelvic and perineal pain; N99.3 Prolapse of vaginal vault after hysterectomy; Z87.891 Personal history of nicotine dependence; Z90.722 Acquired absence of ovaries, bilateral; Z90.710 Acquired absence of both cervix and uterus; Z88.2 Allergy status to sulfonamides; Z88.5 Allergy status to narcotic agent; Z78.0 Asymptomatic menopausal state
CPT/HCPCS: 77063; 77067

== ENCOUNTER → 2024-07-22 | Outpatient (CLI) | payer MEDICARE ==
[2024-07-23 03:16] LABS: ALT 17 U/L (8-44); AST 27 U/L (13-35); Albumin 4.2 g/dL (3.8-4.9); Albumin/Globulin Ratio 1.91 Ratio (1.60-3.17); Alkaline Phosphatase 63 U/L (41-126); Blood Urea Nitrogen 13.6 mg/dL (9.0-27.0); Calcium 9.1 mg/dL (8.7-10.3); Carbon Dioxide 23.3 mmol/L (21.6-31.8); Chloride 102 mmol/L (96-109); Globulin 2.2 g/dL (1.6-3.3); Glucose 95 mg/dL (70-110); Potassium 4.4 mmol/L (3.5-5.5); Sodium 135 mmol/L (135-145); Total Bilirubin 0.3 mg/dL (0.3-1.2); Total Protein 6.4 g/dL (6.2-8.2)
== END | disposition home or self-care (01) ==
LOC: LABWHC1 12:54
PROVIDERS: ATTEND Internal Medicine Interventional Cardiology
DX: I47.9 Paroxysmal tachycardia, unspecified (principal)
CPT/HCPCS: 36415; 80053; 84443

== ENCOUNTER → 2025-03-04 | Outpatient (CLI) | payer MEDICARE ==
[2025-03-04 15:18] LABS: Basophils # (A) 0.05 X 10*3/uL (0.00-0.10); Basophils % (A) 0.7 %; Eosinophils # (A) 0.14 X 10*3/uL (0.04-0.35); Eosinophils % (A) 1.8 %; HCT 43.4 % (37.2-46.3); HGB 13.7 g/dL (12.0-15.0); Lymphocytes % (A) 24.7 %; MCH 28.8 pg (27.0-32.0); MCHC 31.6 g/dL (32.0-37.0); MCV 91.4 FL (80.0-97.0); Mean Platelet Volume 11.2 FL (9.5-12.2); Monocytes # (A) 0.58 X 10*3/uL (0.20-1.00); Monocytes % (A) 7.6 %; NRBC Per 100 WBC 0 X 10*3/uL (0.00-0.01); Neutrophils # (A) 4.99 X 10*3/uL (1.80-7.70); Neutrophils % (A) 64.9 %; Platelet Count 310 X 10*3/uL (140-440); RBC 4.75 X 10*6/uL (4.10-5.20); RDW 13.2 % (11.5-14.5); WBC 7.68 X 10*3/uL (4.50-10.00)
[2025-03-04 15:43] LABS: Blood Urea Nitrogen 14.8 mg/dL (9.0-27.0); Carbon Dioxide 24.4 mmol/L (21.6-31.8); Chloride 105 mmol/L (96-109); Potassium 4.5 mmol/L (3.5-5.5); Sodium 137 mmol/L (135-145)
== END | disposition home or self-care (01) ==
LOC: LABPAT 08:16
PROVIDERS: ATTEND Obstetrics & Gynecology
DX: Z01.818 Encounter for other preprocedural examination (principal); N81.10 Cystocele, unspecified; E03.9 Hypothyroidism, unspecified
CPT/HCPCS: 80051; 82565; 84520; 85025; 86850; 86900; 86901; 87086; 93005

== ENCOUNTER 2025-03-14 05:50 | Day surgery (SDC) | payer MEDICARE ==
[2025-03-09 16:10] VITALS: BMI 27.8
[2025-03-14] MEDS: IV FLUID CONTINUATION 1,000 ML IV ONE (06:40)
[2025-03-14] MEDS: DEXAMETHASONE SOD PHOSPHATE 4 MG/ML 1 ML VIAL IV ONE (06:42)
[2025-03-14] MEDS: ONDANSETRON 4 MG/2 ML VIAL IVP ONE (06:42)
[2025-03-14] MEDS: LACTATED RINGERS 1,000 ML IV SCH ×2 (06:43→10:47)
[2025-03-14] MEDS ORDERED: MIDAZOLAM 2 MG/2 ML VIAL IV PRN (07:00)
[2025-03-14] MEDS ORDERED: MIDAZOLAM 2 MG/2 ML VIAL ONE (07:27)
[2025-03-14] MEDS ORDERED: LIDOCAINE 1% INJ 10MG/ML (20 ML MDV) ONE (07:27)
[2025-03-14] MEDS ORDERED: KETOROLAC 15 MG/ML 1 ML VIAL ONE (07:27)
[2025-03-14] MEDS ORDERED: fentaNYL (PF) 50 MCG/ML 2 ML AMP ONE (07:27)
[2025-03-14] MEDS ORDERED: PROPOFOL 10 MG/ML 20 ML VIAL IV ONE (07:27)
[2025-03-14] MEDS ORDERED: SUCCINYLCHOLINE CHLORIDE 200 MG/10 ML VIAL IV ONE (07:27)
[2025-03-14] MEDS: ceFAZolin 2 GM in DEXTROSE 5% IN WATER 50 ML IVPB PRN (07:33)
[2025-03-14] MEDS: VASOPRESSIN 20 UNIT in SODIUM CHLORIDE 0.9% 60 ML SQ ONE (07:51)
[2025-03-14] MEDS: BACITRACIN ZINC 500 UNIT/GM OINT 28.4 GM TUBE TOPICAL ONE (08:13)
[2025-03-14] MEDS ORDERED: SIMETHICONE 80 MG CHEWABLE PO PRN (08:24)
[2025-03-14] MEDS ORDERED: METOCLOPRAMIDE 5 MG/ML 2 ML VIAL IVP PRN (08:24)
[2025-03-14] MEDS ORDERED: ONDANSETRON 4 MG/2 ML VIAL IVP PRN (08:24)
[2025-03-14] MEDS ORDERED: diphenhydrAMINE 25 MG CAP PO PRN (08:24)
--- NOTE | 2025-03-14 08:32 | P.OP ---
Date of Procedure: 03/14/25 Preoperative Diagnosis: #1. Symptomatic cystocele Postoperative Diagnosis: Same plus #2. Superior enterocele Procedure(s) Performed: Anterior colporrhaphy with contiguous enterocele repair Anesthesia: DARBY Surgeon: Catalino Segundo Collar Worker #1: Ale Nino Estimated Blood Loss (ml): 5 IV fluids (ml): 400 Urine output (ml): 110 Pathology: none sent Condition: stable Disposition: PACU Operative Findings: Preoperative pelvic examination demonstrated a grade 3 cystocele with probable contiguous enterocele which was confirmed during dissection. Post procedurally, the repair appeared to be excellent. Clear urine was seen throughout the case. Description of Procedure: The patient was prepped and draped in usual fashion after general endotracheal anesthesia was administered by the anesthesiologist. A weighted speculum was placed in the uterosacral buttons were grasped with Allis clamps. The apex of the vagina as well as the vesicovaginal mucosa was infused with diluted vasopressin solution. A transverse incision was made from uterosacral to uterosacral and the Allis clamps moved more centrally. The vesicovaginal mucosa was undermined in the midline with Metzenbaum scissors and divided to the urethral apex. The mucosa was then reflected sharply and bluntly on both sides. There was noted to be a moderate component of enterocele and the parietal peritoneum was incidentally opened and the case. A Carson catheter was placed demonstrating clear romi urine in the bladder drained completely. Serial Leslie plication stitches were placed from the urethral apex to the apex of the vagina using 2-0 PDS in standard fashion. The intervening redundant vaginal mucosa was then trimmed and discarded. The open mucosa was then closed with a running locking stitch of 2-0 Vicryl from the urethral apex to the apex of the vagina. Hemostasis appeared to be excellent and estimated blood loss for the entire case was approximately 5 mL or less. The vagina was packed with 1 inch iodoform gauze covered with bacitracin ointment. Urine remained clear. There were no complications. All sponge, instrument, and needle counts were correct. The patient tolerated the procedure well and proceeded to the recovery room in stable condition.
[2025-03-14] MEDS: fentaNYL (PF) 50 MCG/ML 2 ML AMP IV PRN (08:46)
[2025-03-14] MEDS: diphenhydrAMINE 50 MG/ML 1 ML VIAL IVP PRN (09:34)
[2025-03-14] MEDS: ACETAMINOPHEN TAB 325 MG TAB PO PRN (11:19)
[2025-03-14] MEDS: SENNOSIDES-DOCUSATE SODIUM 1 EACH TAB PO SCH (14:28)
[2025-03-14] MEDS: KETOROLAC 15 MG/ML 1 ML VIAL IVP PRN (14:29)
[2025-03-14] MEDS: SCOPOLAMINE 1 MG/72 HR PATCH TRANSDERM ONE (15:59)
[2025-03-14] MEDS: ALPRAZolam 0.5 MG TAB PO SCH (22:50)
[2025-03-14 22:58] VITALS: RESP 16
[2025-03-15 05:54] LABS: Basophils # (A) 0.05 10*3/uL (0.00-0.10); Basophils % (A) 0.4 %; Eosinophils # (A) 0.09 10*3/uL (0.04-0.35); Eosinophils % (A) 0.7 %; HCT 35.5 % (37.2-46.3); HGB 11.6 g/dL (12.0-15.0); Lymphocytes # (A) 2.36 10*3/uL (0.90-5.00); MCH 29.3 pg (27.0-32.0); MCHC 32.7 g/dL (32.0-37.0); MCV 89.6 fL (80.0-97.0); Mean Platelet Volume 10.6 fL (9.5-12.2); Monocytes # (A) 1.09 10*3/uL (0.20-1.00); Monocytes % (A) 8.8 %; Neutrophils # (A) 8.79 10*3/uL (1.80-7.70); Neutrophils % (A) 70.8 %; Platelet Count 253 10*3/uL (140-440); RBC 3.96 10*6/uL (4.10-5.20); WBC 12.42 10*3/uL (4.50-10.00)
[2025-03-15] MEDS: IBUPROFEN 600 MG TAB PO PRN (06:04)
[2025-03-15 06:33] VITALS: TEMP 97.8
--- NOTE | 2025-03-15 08:42 | P.DS ---
Providers Expected date of discharge: 03/15/25 Attending physician: Catalino Segundo Primary care physician: Kandi Gomez - Discharge Diagnosis(es) (1) Cystocele Current Visit: Yes Status: Acute Hospital Course: Patient is a 64-year-old woman who underwent vaginal hysterectomy with posterior colporrhaphy last year and had an excellent result. She over the course of the last year has developed more pelvic pressure and, on examination, was found to have a grade 3 cystocele which was symptomatic in nature. She requested surgical repair. She was taken to the operating room where she underwent anterior colporrhaphy in an uncomplicated fashion. Her postoperative course was unremarkable with vital signs remaining stable and her temperature was afebrile throughout. She is deemed stable for discharge on postoperative day #1 and was discharged home to follow-up in the office in 2 weeks for recheck in 6 weeks routinely. Discharge instructions included calling for any significantly increased vaginal bleeding, pain, fever, urinary complaints, GI complaints, or anything else that concerned her. She was additionally instructed to have nothing in the vagina for at least 6 weeks time to include intercourse and to abstain from any heavy lifting over the same period of time. She was discharged home to follow-up in the office as noted above. Discharge medications included any normal home medications as well as [id number] analgesic pain medications. She did undergo a voiding trial prior to leaving and was able to easily void the large majority of her urine with a minimal postvoid residual. Discharge hemoglobin and hematocrit were 11.6 and 35.5 respectively. Procedures: #1. Anterior colporrhaphy #2. Voiding trial Patient Condition at Discharge: Stable Plan - Discharge Summary Discharge Rx Participant: Yes New Discharge Prescriptions: No Action ALPRAZolam [Xanax] 1 mg PO HS Magnesium Oxide [Mag-Ox] 400 mg PO HS Cholecalciferol [Vitamin D3 (25 Mcg = 1000 Iu)] 25 mcg PO HS Levothyroxine Sodium [Tirosint] 150 mcg PO DAILY Discharge Medication List ALPRAZolam [Xanax] 1 mg PO HS 06/21/19 [History] Cholecalciferol [Vitamin D3 (25 Mcg = 1000 Iu)] 25 mcg PO HS 03/14/21 [History] Magnesium Oxide [Mag-Ox] 400 mg PO HS 03/14/21 [History] Levothyroxine Sodium [Tirosint] 150 mcg PO DAILY 03/09/25 [History] Follow up Appointment(s)/Referral(s): Catalino Segundo MD [STAFF PHYSICIAN] - 2 Weeks Discharge Disposition: HOME SELF-CARE
[2025-03-15 08:44] VITALS: BP 132/69; PULSE 78
== END 2025-03-15 09:10 | disposition home or self-care (01) ==
LOC: OR 05:50 → 4FBP 08:34 → OR 03-15 09:10
PROVIDERS: ATTEND Obstetrics & Gynecology
DX: N81.10 Cystocele, unspecified (principal); Z88.2 Allergy status to sulfonamides; Z88.5 Allergy status to narcotic agent
CPT/HCPCS: 57240; J1200; J1100; J0690; J2405; J3010; J1885; 85025

== ENCOUNTER → 2025-05-09 | Outpatient (CLI) | payer MEDICARE ==
[2025-05-09 13:10] VITALS: BP 105/75; PULSE 103; RESP 16
--- NOTE | 2025-05-09 14:07 | XR ---
EXAMINATION TYPE: XR lumbar spine 2 or 3V DATE OF EXAM: 05/09/2025 1:57 PM COMPARISON: None CLINICAL INDICATION: Female, 64 years old with history of M54.16; PHH, pain TECHNIQUE: XR lumbar spine 2 or 3V - Frontal, lateral and coned in L5-S1 lateral views of the spine. FINDINGS: No evidence of any acute osseous pathology. No evidence of loss of vertebral body height i s seen. There is normal alignment of the lumbar vertebral bodies. Scattered disc space narrowing. Mul tilevel marginal osteophyte formation throughout the visualized spine. There is facet joint arthropat hy throughout the spine. Scattered at least mild neural foraminal stenosis. Postsurgical changes L4-L 5 with laminectomy. Discectomy at L4-L5 Cord and coarse secretory clips. IMPRESSION: 1. No acute fracture. 2. Postsurgical changes with mild multilevel disc degeneration. [facility], , 05/09/2025 2:05 PM
--- NOTE | 2025-05-09 16:00 | P.PAINPG ---
Objective - Vital Signs Vital signs: Intake & Output 05/08/25 05/09/25 05/09/25 18:59 06:59 18:59 Weight 70.76 kg PQRS Measure Charge Sheet Comment: HISTORY OF PRESENT ILLNESS: A 64 yr old female as a referral from Dr Gomez presents today w severe and chronic LBP > 1 yr secondary to radiculopathy, spondylosis and facet arthropathy without myelopathy for evaluation. Pt states pain level is provoked at 4-8 /10 in intensity, constant, localized in the lumbar spine, predominantly axial, sharp in character w occasional shooting pain towards the hips and LEs. Pain is provoked by lifting . Pain is alleviated by physician guided home stretches from Dr Gomez 4-5 times weekly since mid March 2025, heat, ice, medications, topical, TENS unit use, repositioning and rest . Oswestry axial pain score at 27. PMH: OA, Hypothyroidism, Hyperlipidemia, Anxiety PSH: BL SI (04/11/25), Lumbar Surgery x4 (2002, 2007), FILOMENA/BSO (1990), Cholecystectomy, Hysterectomy, Tubal Ligation, Yeison Fundoplication, Colonoscopy (2018, 2023), Rectocele Repair (2022), R Eye Strabismus (1999), Cataract x2 (2023) SH: Former tobacco user, Occ ETOH use, No Illicit drug use FH: Mo- Uterine CA, COPd. Fa- Bladder CA All: See list Medications include Tyl, Aleve, Voltaren Gel REVIEW OF ORGAN SYSTEMS: CONSTITUTIONAL: No fevers or chills. No recent weight loss. NEUROLOGICAL: + numbness and tingling along the distal extremities. No seizure disorders or headaches. MUSCULOSKELETAL: + pain PSYCHIATRIC: Denies current depression or suicidal thoughts. Physical Examinations : Constitutional : Cooperative , not in acute distress . Neurologic : Cranial nerve II to XII intact. No focal neurological deficits. Psychiatric : alert & oriented x 3. Matching mood & appropriate affect. Judgment & insight intact. Musculoskeletal : Cervical Spine Motor strength in the deltoid and biceps: Normal right side. Normal Left side Motor strength biceps and the wrist extensors: Normal right side . Normal left side Motor strength in the triceps muscle: Normal right side. Normal left side Deep tendon reflexes: Normal at the biceps. Normal at Brachioradialis. Normal at triceps Vertebral body tenderness to deep palpation over Cervical facet loading test: positive bilaterally Spurling test: positive bilaterally Neck distraction test: positive bilaterally Mario Alberto sign: positive bilaterally Lumbar spine +Incisional scar Motor strength lower extremities ,thigh and legs 5/5 Right side , 5/5 Left side Deep tendon reflexes : Normal Knee Jerk. Normal Ankle Jerk Vertebral body tenderness over Rees Test positive L5 Lumbar facet Loading Test: positive Right / positive Left Range of motion of the lumbar spine Flexion 30 degrees, extension 10 degrees Straight Leg Raise test: Left/ Right positive at <30 degrees Artie test: positive right / positive left. Severe tenderness over the Sacroiliac joint on the Right / Left sides Gaenslen test: positive bilaterally Seated flexion test: positive bi laterally. Sacral spine : Severe tenderness over the Sacroiliac joint: right side / left side Range of motion: Flexion of the lumbar spine <60 degrees Range of motion: Extension of the lumbar spine <20 degrees Gaenslen's Test positive Artie test: positive right side / left side Thigh Thrust Test Sacral Thrust Test Imaging: MRI non contrast lumbar spine from 09/09/22 reviewed Assessment/ Plan : L4-L5 discectomy/ laminectomy/ fusion, L3-L4 radiculopathy, facet arthropathy Recommendation of x ray M54.16. All questions answered. I have spent greater than 30 minutes on patient care today. Dr Pond was available by phone for the evaluation of this patient. The time was used to review the medical records including relevant urine studies and Prescription history (MAPs), review of the available imaging, evaluation and examination of the patient, coordination of care with the medical staff and if applicable referring physicians, as well as creation of the medical record PQRS Narrative: Smoking Status Former smoker Home Medications: Ambulatory Orders ALPRAZolam [Xanax] 1 mg PO HS 06/21/19 Cholecalciferol [Vitamin D3 (25 Mcg = 1000 Iu)] 25 mcg PO HS 03/14/21 Magnesium Oxide [Mag-Ox] 400 mg PO HS 03/14/21 Levothyroxine Sodium [Tirosint] 150 mcg PO DAILY 03/09/25 Controlled Substance Measures - Controlled Substance Measures Is patient prescribed a controlled substance at discharge?: No
== END ==
LOC: PNWHC3 12:54
PROVIDERS: ATTEND Specialist
DX: M47.26 Other spondylosis with radiculopathy, lumbar region (principal); M43.26 Fusion of spine, lumbar region; M51.16 Intervertebral disc disorders with radiculopathy, lumbar region; Z87.891 Personal history of nicotine dependence; Z88.2 Allergy status to sulfonamides; Z88.5 Allergy status to narcotic agent; Z88.6 Allergy status to analgesic agent; Z98.890 Other specified postprocedural states
CPT/HCPCS: 72100; 99202

== ENCOUNTER → 2025-05-22 | Outpatient (CLI) | payer MEDICARE ==
--- NOTE | 2025-05-22 08:55 | MR ---
EXAMINATION TYPE: MR lumbar spine wo con DATE OF EXAM: 05/22/2025 8:29 AM COMPARISON: 09/09/2022 CLINICAL INDICATION: Female, 64 years old with history of M54.16 RADICULOPATHY, LUMBAR REGION, low ba ck pain that radiates down both legs, history of surgery. IV Contrast: cc (None if empty) TECHNIQUE: Multiplanar, multisequence images of the lumbar spine were acquired without IV contrast. Findings: There are postsurgical changes of laminectomy at L4-5 and L5-S1 with interbody fusion at the L4-5 lev el. At the L3-4 level, secondary to moderate facet hypertrophy, marked thickening of ligamentum flavum an d mild circumferential disc bulge there is mild to moderate stable spinal stenosis. There is mild to moderate degenerative disc disease at the L3-4 level. There is a mild left lateral broad-based disc p rotrusion. The L1-2 and L2-3 discs are well-preserved and there is no spinal stenosis or disc herniation at thes e levels. There is stable mild to moderate degenerative disc disease at the L5-S1 level but no L5-S1 disc herni ation. There is stable moderate to marked neural foraminal stenosis at the L3-4 level right and moderate at the L3-4 level on the left. The remaining neuroforamina are patent. IMPRESSION: 1. Overall, no significant interval change. 2. Postsurgical changes of laminectomy at the L4-5 and L5-S1 levels and interbody fusion at the L4-5 level. 3. Stable [id number]-vtvbufbp spinal stenosis at the L3-4 level. 4. Stable bilateral L3-4 neural foraminal stenosis, moderate to marked on the right and moderate on t he left [facility], , 05/22/2025 8:53 AM
== END | disposition home or self-care (01) ==
LOC: RADMRIMAIN 07:45
PROVIDERS: ATTEND Specialist
DX: M48.061 Spinal stenosis, lumbar region without neurogenic claudication (principal); M51.16 Intervertebral disc disorders with radiculopathy, lumbar region; Z98.1 Arthrodesis status
CPT/HCPCS: 72148

== ENCOUNTER → 2025-06-06 | Outpatient (CLI) | payer MEDICARE ==
[2025-06-06 11:41] VITALS: BP 129/80; PULSE 73; RESP 16; TEMP 97.2
--- NOTE | 2025-06-06 13:17 | P.PAINPG ---
Objective - Vital Signs Vital signs: Vital Signs Temp 97.2 F L 06/06/25 11:33 Pulse 73 06/06/25 11:33 Resp 16 06/06/25 11:33 BP 129/80 06/06/25 11:33 Pulse Ox 97 06/06/25 11:33 FiO2 Intake & Output 06/05/25 06/06/25 06/06/25 18:59 06:59 18:59 Weight 70.76 kg PQRS Measure Charge Sheet Mode of Arrival: Ambulatory Comment: HISTORY OF PRESENT ILLNESS: A 65 yr old female presents today w severe and chronic LBP > 1 yr secondary to radiculopathy, spondylosis and facet arthropathy without myelopathy for evaluation. Pt states pain level is provoked at 7 /10 in intensity, constant, localized in the lumbar spine, predominantly axial, sharp in character w occasional shooting pain towards the hips and LEs. Pain is provoked by lifting . Pain is alleviated by physician guided home stretches from Dr Gomez 4-5 times weekly since mid March 2025, heat, ice, medications, topical, TENS unit use, repositioning and rest . Oswestry axial pain score at 27. Interventional procedures include BL SI (04/11/25), Lumbar Surgery x4 (2002, 2007) Medications include Tyl, Aleve, Voltaren Gel REVIEW OF ORGAN SYSTEMS: CONSTITUTIONAL: No fevers or chills. No recent weight loss. NEUROLOGICAL: + numbness and tingling along the distal extremities. No seizure disorders or headaches. MUSCULOSKELETAL: + pain PSYCHIATRIC: Denies current depression or suicidal thoughts. Physical Examinations : Constitutional : Cooperative , not in acute distress . Neurologic : Cranial nerve II to XII intact. No focal neurological deficits. Psychiatric : alert & oriented x 3. Matching mood & appropriate affect. Judgment & insight intact. Musculoskeletal : Cervical Spine Motor strength in the deltoid and biceps: Normal right side. Normal Left side Motor strength biceps and the wrist extensors: Normal right side . Normal left side Motor strength in the triceps muscle: Normal right side. Normal left side Deep tendon reflexes: Normal at the biceps. Normal at Brachioradialis. Normal at triceps Vertebral body tenderness to deep palpation over Cervical facet loading test: positive bilaterally Spurling test: positive bilaterally Neck distraction test: positive bilaterally Mario Alberto sign: positive bilaterally Lumbar spine +Incisional scar Motor strength lower extremities ,thigh and legs 5/5 Right side , 5/5 Left side Deep tendon reflexes : Normal Knee Jerk. Normal Ankle Jerk Vertebral body tenderness over Rees Test positive L5 Lumbar facet Loading Test: positive Right / positive Left Range of motion of the lumbar spine Flexion 30 degrees, extension 10 degrees Straight Leg Raise test: Left/ Right positive at <30 degrees Artie test: positive right / positive left. Severe tenderness over the Sacroiliac joint on the Right / Left sides Gaenslen test: positive bilaterally Seated flexion test: positive bilaterally. Sacral spine : Severe tenderness over the Sacroiliac joint: right side / left side Range of motion: Flexion of the lumbar spine <60 degrees Range of motion: Extension of the lumbar spine <20 degrees Gaenslen's Test positive Artie test: positive right side / left side Thigh Thrust Test Sacral Thrust Test Imaging: MRI non contrast lumbar spine from 05/22/25 Assessment/ Plan : L4-L5 discectomy/ laminectomy/ fusion, L3-L4 radiculopathy, facet arthropathy Recommendation of Caudal LITO w lysis #1. May also benefit from BL TFESI or repeat BL SI. Risks, benefits of procedure discussed and pt verbalized understanding. Protocol for discontinuation/ continuation of medications arsenio proceudre discussed. All questions answered. I have spent greater than 30 minutes on patient care today. Dr Pond was available by phone for the evaluation of this patient. The time was used to review the medical records including relevant urine studies and Prescription history (MAPs), review of the available imaging, evaluation and examination of the patient, coordination of care with the medical staff and if applicable referring physicians, as well as creation of the medical record - Pain Location Bilateral Lower Back Non-Pharmacological Interventions: Chiropractic Treatment, Heat, Home Exercise, Ice, Physical Therapy, Position/Reposition, Sitting, Standing, Stretching, TENS Unit Pharmacological Interventions: Epidural, PRN Medication PQRS Narrative: Smoking Status Former smoker Blood Pressure 129/80 Pain Intensity [Bilateral 7 Lower Back] Scale Used Numeric (1 - 10) Hx Alcohol Use (MH) No Home Medications: Ambulatory Orders ALPRAZolam [Xanax] 1 mg PO HS 06/21/19 Cholecalciferol [Vitamin D3 (25 Mcg = 1000 Iu)] 25 mcg PO HS 03/14/21 Magnesium Oxide [Mag-Ox] 400 mg PO HS 03/14/21 Levothyroxine Sodium [Tirosint] 150 mcg PO DAILY 03/09/25 diazePAM [Valium] 10 mg PO DAILY 1 Days #1 tab 06/06/25 Controlled Substance Measures - Controlled Substance Measures Is patient prescribed a controlled substance at discharge?: Yes When asked, does pt state using other controlled substances?: No If prescribed controlled substance>3 days was MAPS reviewed?: Prescribed <3 Days
== END ==
LOC: PNWHC3 11:19
PROVIDERS: ATTEND Specialist
DX: M47.26 Other spondylosis with radiculopathy, lumbar region (principal); Z88.2 Allergy status to sulfonamides; Z88.5 Allergy status to narcotic agent; Z87.891 Personal history of nicotine dependence; Z98.890 Other specified postprocedural states
CPT/HCPCS: 99211

== ENCOUNTER → 2025-06-09 | Outpatient (CLI) | payer MEDICARE ==
--- NOTE | 2025-06-09 19:43 | BD ---
EXAMINATION TYPE: Axial Bone Density DATE OF EXAM: 06/09/2025 CLINICAL HISTORY: 65 years old Female. ICD-10 CODE: M85.851 OSTEO OF RT HIP , Additional History: Height: 63 Weight: 156.0 FRAX RISK QUESTIONS: Alcohol (3 or more units per day): no Family History (Parent hip fracture): no Glucocorticoids (More than 3mos): no (Ex: prednisone, prednisolone, methylprednisolone, dexamethasone, and hydrocortisone). History of Fracture in Adulthood: no Secondary Osteoporosis: 1. Type 1 Diabetes: no 2. Hyperthyroidism: no 3. Menopause before 45: yes 4. Malnutrition: no 5. Chronic liver disease: no Rheumatoid Arthritis: no Current Tobacco Use: no RISK FACTORS HISTORY OF: Hip Fracture (Right/Left): no Spine Fracture: no History of Wrist Fracture: no Surgery to Spine/Hip(right/left)/Wrist (right/left): L4-L5 fusion When: 2010 MEDICATIONS: Thyroid Medications: Levothyroxine How Long: past 20 years Osteoporosis Medications: no EXAM MEASUREMENTS: Bone mineral density about the R hip (g/cm2): 0.910 Bone mineral density about the L hip (g/cm2): 0.889 T Score values are as follows: -----R Neck: -1.4 -----L Neck: -1.6 -----R Total: -0.8 -----L Total: -0.9 Z Score values are as follows: -----R Neck: -0.1 -----L Neck: -0.4 -----R Total: 0.2 -----L Total: 0.1 Bone mineral density has: increased 2.2 % since study of: 07/01/2022 FRAX%s: The graph provided illustrates a 9.2% chance for a major osteoporotic fx and a 1.0% chance fo r the hips probability for fx in 10 years time. IMPRESSION: Osteopenia (T Score between -2.5 and -1). There is slightly increased risk of fracture and the patient may be considered for treatment. Re-Screen 2-5 years. NOTE: T-SCORE=SD OF THE YOUNG ADULT MEAN. [facility], , 06/09/2025 7:41 PM
--- NOTE | 2025-06-10 13:11 | MM ---
Reason for Exam: Screening (asymptomatic). Last screening mammogram was performed 12 month(s) ago. Patient History: Menarche at age 15. First Full-Term at age 23. Left ovary removed at age 30. Right ovary removed at age 30. Hysterectomy at age 30. Postmenopausal. Currently using Estrogen, starting at age 30. Mother had breast cancer, age 50. Risk Values: Johanny 5 year model risk: 2.8%. NCI Lifetime model risk: 11.1%. Prior Study Comparison: 05/28/2022 Bilateral MG 3D screening mammo w/cad, [facility]. 06/03/2023 Bilateral MG 3D screening mammo w/cad, [facility]. 06/08/2024 Bilateral MG 3D screening mammo w/cad, [facility]. Tissue Density: The breasts are heterogeneously dense, which may obscure small masses. Findings: Analyzed By CAD. There is no suspicious group of microcalcifications or new suspicious mass in either breast. Overall Assessment: Negative, BI-RAD 1 Management: Screening Mammogram of both breasts in 1 year. . Patient should continue monthly self-breast exams. A clinical breast exam by your physician is recommended on an annual basis. This exam should not preclude additional follow-up of suspicious palpable abnormalities. Note on Johanny scores and lifetime risk: 1. A Johanny score greater than 3% is considered moderate risk. If this is the case, consider specialist referral to assess eligibility for a risk reducing agent. 2. If overall lifetime risk for the development of breast cancer is 20% or higher, the patient may qualify for future screening with alternating mammogram and breast MRI. [facility], , 06/10/2025 1:08 PM. Electronically signed and approved by: Srinivasa Batista M.D. Radiologist
== END | disposition home or self-care (01) ==
LOC: RADMAMWWP 13:22
PROVIDERS: ATTEND Internal Medicine
DX: Z12.31 Encounter for screening mammogram for malignant neoplasm of breast (principal); M85.851 Other specified disorders of bone density and structure, right thigh; R92.333 Mammographic heterogeneous density, bilateral breasts; Z78.0 Asymptomatic menopausal state; Z80.3 Family history of malignant neoplasm of breast
CPT/HCPCS: 77063; 77067; 77080